=== PATIENT | male | born 1950 | race Caucasian/White ===

== ENCOUNTER 2020-10-26 18:04 | Inpatient (IN) | payer OTHER, MEDICARE, SELFPAY ==
--- NOTE | ~2020-10-26 | CT_ITS ---
EXAMINATION: CT biopsy lung w/imaging DATE: 10/30/2020 14:13 INDICATION: Left lung mass. TECHNIQUE: The procedure including the risks, benefits, and alternatives and possibility of chest tub e placement were discussed with the patient. Risks discussed included hemorrhage and pneumothorax. Th e patient understood the risks and agreed to proceed. The patient was placed supine. The skin overly ing the left chest was prepped and draped in sterile fashion. Anesthetic was administered with 1% li docaine subcutaneously. A 19 gauge outer needle was advanced under CT guidance to the lesion of inte rest. A 20 gauge core biopsy needle was then used to obtain 3 core biopsy specimens. The needle was r emoved and the entry site was cleaned and dressed. The mA was adjusted according to patient size. Ite rative reconstruction technique was employed. The dose-length product was 93.91 mGy-cm. There were n o immediate complications. FINDINGS: CT images demonstrate the outer needle tip in an 11 cm mass in left lung upper lobe. IMPRESSION: 1. CT-guided core needle biopsy of a left lung mass. Reviewed, dictated and finalized at location A.
--- NOTE | ~2020-10-26 | US_ITS ---
EXAMINATION: US thoracentesis DATE: 10/27/2020 13:52 INDICATION: pleural effusion TECHNIQUE: The procedure and its risks, benefits, and alternatives were discussed with the patient. P otential risks discussed included bleeding, infection, and pneumothorax. The patient understood the r isks and agreed to proceed. The skin was prepped and draped in sterile fashion. 1% lidocaine was used for local anesthesia. Under ultrasound guidance, a 5 Fr catheter with trochar was advanced into the left pleural effusion. Fluid was aspirated. The catheter was removed, and a dressing was applied. The re were no immediate complications. FINDINGS: Ultrasound images demonstrate a left pleural effusion and the catheter within the fluid. IMPRESSION: 1. Successful ultrasound-guided thoracentesis yielding 800 mL of clear, yellow fluid. Reviewed, dictated and finalized at location A.
--- NOTE | ~2020-10-26 | XR_ITS ---
EXAMINATION: [id number]_CR DATE: 10/27/2020 13:45 INDICATION: Left pleural effusion status post thoracentesis. TECHNIQUE: A single frontal view of the chest was obtained. COMPARISON: Chest CT 10/26/2020 FINDINGS: There is a mass involving left mid and lower lung zones. There is a small left pleural effu moses. No pneumothorax. The heart size is normal. IMPRESSION: 1. Mass involving left mid and lower lung zones, consistent with primary bronchogenic carcinoma. 2. Small left pleural effusion with improvement status post thoracentesis. Reviewed, dictated and finalized at location A. IMPRESSION: 1. Mass involving left mid and lower lung zones, consistent with primary bronch ogenic carcinoma. 2. Small left pleural effusion with improvement status post thoracentesis.
--- NOTE | ~2020-10-26 | XR_ITS ---
EXAMINATION: XR chest 1V portable DATE: 10/30/2020 17:25 INDICATION: Left lung mass status post percutaneous biopsy. TECHNIQUE: A single frontal view of the chest was obtained. COMPARISON: Chest single view at 3:23 PM FINDINGS: There is a mass in left lung upper lobe. There is a small left pleural effusion. No pneumot horax. The heart size is normal. IMPRESSION: 1. Mass in left lung upper lobe suspicious for primary bronchogenic carcinoma. 2. Stable small left pleural effusion. Reviewed, dictated and finalized at location A.
--- NOTE | ~2020-10-26 | CT_ITS ---
EXAMINATION: CTA chest PE protocol DATE: 10/26/2020 23:48 INDICATION: Shortness of breath TECHNIQUE: Computed tomography angiography (CTA) of the chest was performed with 100 mL Omnipaque-350 intravenous contrast timed to evaluate the pulmonary arteries. Coronal maximum intensity projection 3D-reconstructions were created by the technologist. Automated exposure control and iterative reconst ruction technique were employed. Exam dose: 426.17 mGy-cm total exam DLP. COMPARISON: 10/26/2020 AP and lateral chest FINDINGS: There is no CT evidence of pulmonary embolism. No thoracic aortic aneurysm or dissection. There is thoracic aortic as well as great vessel and coron michelle artery calcification. Normal heart size. Minimal pericardial effusion. There is an approximately 10.8 x 10.3 cm soft tissue mass of the lingula, extending into the left hil um and pericardium and myocardium with loss of intervening fat planes, likely a large lingular malign myriam. Moderate left pleural effusion. There is left lower lobe compressive atelectasis. There is mild prevascular and superior mediastinal lymph node prominence, likely metastatic. Heart size is normal. Right lung is clear. In addition to the compressive left lower lobe atelectasis there is mild left up per lobe infiltrate and/or atelectasis. Small sliding hiatal hernia. No suspicious osteolytic or osteoblastic lesions are noted. IMPRESSION: Lingular mass lesion most likely due to pulmonary malignancy, with evidence of pericardi al or myocardial probable invasion, left hilar and mediastinal lymphadenopathy, moderate left pleural effusion. Reviewed, dictated and finalized at Location A. Reviewed, dictated and finalized at location A. IMPRESSION: Lingular mass lesion most likely due to pulmonary malignancy, with evidence of pericardial or myocardial probable invasion, left hilar and medias tinal lymphadenopathy, moderate left pleural effusion.
--- NOTE | ~2020-10-26 | XR_ITS ---
EXAMINATION: XR chest 1V portable DATE: 10/30/2020 15:30 INDICATION: Left lung mass status post percutaneous biopsy. TECHNIQUE: A single frontal view of the chest was obtained. COMPARISON: Chest single view at 219 PM FINDINGS: There is a mass in left lung upper lobe. There is a small left pleural effusion. No pneumot horax. The heart size is normal. IMPRESSION: 1. Mass in left lung upper lobe suspicious for primary bronchogenic carcinoma. 2. Stable small left pleural effusion. Reviewed, dictated and finalized at location A.
--- NOTE | ~2020-10-26 | XR_ITS ---
EXAMINATION: XR chest 1V DATE: 10/30/2020 14:22 INDICATION: Left lung mass status post percutaneous biopsy. TECHNIQUE: A single frontal view of the chest was obtained. COMPARISON: Chest 2 views 10/26/2020 FINDINGS: There is a mass in left lung upper lobe. There is a small left pleural effusion. No pneumot horax. The heart size is normal. IMPRESSION: 1. Left lung mass suspicious for primary bronchogenic carcinoma. 2. Small left pleural effusion. Reviewed, dictated and finalized at location A.
--- NOTE | ~2020-10-26 | XR_ITS ---
EXAMINATION: XR chest 2V EXAM DATE: 10/26/2020 19:09 INDICATION: Shortness of breath for 2 months, worsening. Productive cough. TECHNIQUE: Frontal and lateral projections of the chest obtained and reviewed. There is no prior eliza dy for comparison. FINDINGS: There is dense lingular, left lower lobe consolidation. Could be pneumonia and atelectasis . Underlying cancer not excludable and follow-up chest x-ray recommended in 2 weeks, CT chest with co ntrast if this does not resolve. Probable left pleural effusion and elevated left hemidiaphragm. Righ t lung is clear. No pneumothorax. Cardiomediastinal silhouette is normal. There are no osseous abnorm alities identified. IMPRESSION: Dense lingular, left lower lobe consolidation. Pneumonia, atelectasis an/or cancer. Clin ical correlation, follow-up chest x-ray to resolution. Reviewed, dictated and finalized at location A. IMPRESSION: Dense lingular, left lower lobe consolidation. Pneumonia, atelecta sis an/or cancer. Clinical correlation, follow-up chest x-ray to resolution.
[2020-10-26 18:13] VITALS: BP 128/70; PULSE 104; RESP 20; TEMP 37.3; O2SAT 94
--- NOTE | 2020-10-26 18:17 | ECG_ITS ---
Measurements Intervals [place] Rate: 99 P: 54 AL: 164 QRS: 39 QRSD: 96 T: 120 QT: 318 QTc: 408 Interpretive Statements SINUS RHYTHM POSSIBLE LEFT ATRIAL ENLARGEMENT BORDERLINE T WAVE ABNORMALITY- DIFFUSE LEADS BASELINE WANDER- I, III, AVL, AVF, V2-V6 BORDERLINE ECG Electronically Signed On 10-27-2020 10:47:16 CDT by Kem Kiran D.O.
[2020-10-26 18:33] LABS: Basophils Percent Auto 0.2 % (0.2-1.2); Eosinophils Absolute Auto 0.2 K/mm3 (0-0.3); Eosinophils Percent Auto 1.2 % (0-4.4); Hematocrit 29.2 % (42.0-52.0); Hemoglobin 8.7 g/dL (14.0-18.0); Immature Granulocyte Absolute 0.07 K/mm3 (0.00-0.031); Immature Granulocyte Percent A 0.5 % (0-0.5); Lymphocytes Absolute Auto 1.83 K/mm3 (0.9-3.2); Lymphocytes Percent Auto 13.9 % (18.3-44.2); Mean Corpuscular HGB Conc 29.8 g/dl (32-36); Mean Corpuscular Hemoglobin 21.5 pg (26-34); Mean Corpuscular Volume 72.3 fl (80-100); Monocytes Percent Auto 7.9 % (2.6-8.5); Neutrophils Percent Auto 76.3 % (45.5-73.1); Platelet Count Result 452 k/mm3 (150-375); Red Blood Count 4.04 M/mm3 (4.6-6.20); Red Cell Distribution Width 16.9 % (11.5-14.5); White Blood Count 13.2 K/mm3 (4.5-10.0)
[2020-10-26 18:41] LABS: Anion Gap 7 mmol/L (8-16); Blood Urea Nitrogen 15 mg/dL (9-20); Calcium 10.6 mg/dL (8.4-10.2); Carbon Dioxide 29 mmol/L (22-30); Chloride 93 mmol/L (98-107); Estimated CRCL calculation 62 ml/min; Estimated Glomerular Filt Rate > 60; Glucose 110 mg/dL (75-110); Potassium 3.5 mmol/L (3.4-5.0); Sodium 129 mmol/L (137-145)
[2020-10-26 20:09] VITALS: BP 160/77; PULSE 100; RESP 24; TEMP 37.4; O2SAT 96; O2SAT 98
[2020-10-26 21:24] VITALS: PULSE 102; RESP 20
[2020-10-26] MEDS: IPRATROPIUM BR 0.02% INH SOLN 0.5 MG/2.5 ML VIAL INHALATION (21:24)
[2020-10-26] MEDS: ALBUTEROL SULFATE NEB 2.5 MG/0.5 ML INH 5 MG INHALATION (21:24)
[2020-10-26 21:31] VITALS: PULSE 102; RESP 20
[2020-10-26 21:44] VITALS: PULSE 100; RESP 20
[2020-10-26 22:02] VITALS: BP 131/56; PULSE 100; O2SAT 93
[2020-10-26 22:11] LABS: Lactic Acid Reflex 1.3 mmol/L (0.7-2.1)
[2020-10-26 22:12] LABS: Alanine Aminotransferase 11 U/L (4-50); Albumin Level 3.9 g/dL (3.5-5.1); Alkaline Phosphatase 130 U/L (38-126); Aspartate Amino Transferase 34 U/L (17-59); Bilirubin,Total 0.7 mg/dL (0.2-1.3)
[2020-10-26 22:24] LABS: NT Pro B Type Natriuretic Pept 1100 pg/mL (5-100)
[2020-10-26 22:26] LABS: Troponin I < 0.012 ng/mL (0.000-0.034)
--- NOTE | 2020-10-26 23:11 | ED.GENADULT ---
HPI - General Adult General Chief complaint: Shortness of Breath/Dyspnea Stated complaint: Difficulty breathing 2 months Time Seen by Provider: 10/26/20 21:10 History of Present Illness HPI narrative: Patient is a 70-year-old gentleman who presents the emergency department chief complaint of shortness of breath. Patient reports he has history of a lesion in his left lung and also has had pleural effusions drained out of his left side of his chest. Patient states has been having increasing shortness of breath over the last several months but states that today it is gotten significantly worse. The patient states that he feels as though he cannot get a good deep breath Related Data Home Medications Medication Instructions Recorded Confirmed amlodipine 5 mg tablet 5 mg PO DAILY 06/14/19 gemfibrozil 600 mg tablet 600 mg PO BID 06/14/19 ipratropium 20 mcg-albuterol 100 1 puff INHALATION QID 06/14/19 mcg/actuation mist for inhalation lisinopril 5 mg tablet 5 mg PO DAILY 06/14/19 polyethylene glycol 3350 17 17 gm PO DAILY 06/14/19 gram/dose oral powder Allergies Allergy/AdvReac Type Severity Reaction Status Date / Time No Known Allergies Allergy Mild Verified 10/26/20 20:13 [facility] Past Medical History Medical History (Updated 10/27/20 @ 01:32 by Dorian Diehl MD) Agent orange exposure Anemia, unspecified Body mass index (BMI) 35.0-35.9, adult (01/01/19) Changing skin lesion Chronic obstructive pulmonary disease, unspecified Dorsalgia, unspecified Essential (primary) hypertension Former smoker Hyperglycemia Hypersomnia Memory loss Other fatigue Parkinsons disease Pure hypercholesterolemia Tremor Urinary incontinence Family History Family History (Updated 01/01/19 @ 08:56 by DOCTOR UNKNOWN) Father Family history of malignant neoplasm Mother Patient's mother is in good health Patient's mother is , Onset Age: 69 Family history of malignant neoplasm of brain Family history of malignant neoplasm of bone Family history of malignant neoplasm of uterus Social History Social History (Updated 06/17/19 @ 08:28 by Harry Roque [facility]) Smoking packs per day: 3 Smoking cigarettes per day: 60.0 Years smoked: 20 Smoking pack-years: 60.00 Smoking status: Former smoker Smoking end date: 04/24/00 Alcohol intake: never Gender identity (if verbalized by the patient): Male Course Vital Signs Vital signs: Vital Signs Temperature 37.3 C 10/26/20 18:13 Pulse Rate 104 H 10/26/20 18:13 Respiratory Rate 20 10/26/20 18:13 Blood Pressure 128/70 10/26/20 18:13 Pulse Oximetry 94 10/26/20 18:13 Temperature 37.4 C 10/26/20 20:09 Pulse Rate 90 10/27/20 00:49 Respiratory Rate 20 10/27/20 00:49 Blood Pressure 147/71 H 10/27/20 00:49 Pulse Oximetry 96 10/27/20 00:49 Medical Decision Making Vital Signs Vital Signs: Vital Signs Temperature 37.3 C 10/26/20 18:13 Pulse Rate 104 H 10/26/20 18:13 Respiratory Rate 20 10/26/20 18:13 Blood Pressure 128/70 10/26/20 18:13 Pulse Oximetry 94 10/26/20 18:13 Temperature 37.4 C 10/26/20 20:09 Pulse Rate 90 10/27/20 00:49 Respiratory Rate 20 10/27/20 00:49 Blood Pressure 147/71 H 10/27/20 00:49 Pulse Oximetry 96 10/27/20 00:49 Lab Data Result diagrams: 10/26/20 18:25 10/26/20 18:25 Labs: Lab Results 10/26/20 10/26/20 10/26/20 Range/Units 18:25 18:25 21:45 WBC 13.2 H (4.5-10.0) K/mm3 RBC 4.04 L (4.6-6.20) M/mm3 Hgb 8.7 L (14.0-18.0) g/dL Hct 29.2 L (42.0-52.0) % MCV 72.3 L (80-100) fl MCH 21.5 L (26-34) pg MCHC 29.8 L (32-36) g/dl RDW 16.9 H (11.5-14.5) % Plt Count 452 H (150-375) k/mm3 MPV 9.0 (7.4-10.4) fl Immature Gran % (Auto) 0.5 (0-0.5) % Neut % (Auto) 76.3 H (45.5-73.1) % Lymph % (Auto) 13.9 L (18.3-44.2) % [place] % (Auto) 7.9 (2.6-8.5) % Eos % (Auto)
[2020-10-27] VITALS (20 sets, daily range): BP systolic 111–147; BP diastolic 48–75; PULSE 77–100; RESP 16–28; TEMP 36.2–36.9; O2SAT 93–99; BMI 25.8
[2020-10-27] MEDS: ALBUTEROL SULFATE NEB 2.5 MG/0.5 ML INH 5 MG INHALATION ×3 (02:49→14:15)
[2020-10-27] MEDS: IPRATROPIUM BR 0.02% INH SOLN 0.5 MG/2.5 ML VIAL INHALATION ×4 (02:50→20:04)
--- NOTE | 2020-10-27 02:50 | ADMGEN ---
This patient, Frederick Garduno, was admitted to Medical Room 345-01. Patient/family oriented to hospital policies and general routines including ID bracelet, bed and alarms, visiting hours, pain management, procedures, bathroom and other care routines, personal items, smoking policy, room service/diet, and visiting hours. Information on how to activate the Rapid Response Team has been discussed. Patient/Family are encouraged to report perceived risks to care and to ask questions if they do not understand what they are told or what they should do.
--- NOTE | 2020-10-27 03:31 | PM.IMHP ---
H&P: HPI History of Present Illness Date/Time: 10/27/20 03:31 Chief Complaint: shortness of breath Narrative: Patient is a 70-year-old gentleman who presents the emergency department with chief complaint of shortness of breath. Patient reports he has history of a lesion in his left lung and also has had pleural effusions drained out of his left side of his chest few weeks back. Patient states has been having increasing shortness of breath over the last several months but states that today it is gotten significantly worse. The patient states that he feels as though he cannot get a good deep breath. He also reports chronic cough. No fever or chills. He also reported he had some chest pain in his left side of the chest that radiated to his left shoulder. He states he is getting worked up for his left lung mass this Monday by a doctor in [place] that is he is going to follow-up with. He otherwise does not know the details of the test that he is going to get it done or the details of the tests that he had done in the past. He also reports significant weight loss of about 50 lb since past 6 months. His workup in the ER has revealed leukocytosis of 13,000 with anemia of 8.7 along with hyponatremia of 129 normal renal function elevated calcium at 10.6- troponins elevated BNP at 11:00 a.m. normal lactate. His chest x-ray revealed dense lingular left lower lobe consolidation. Pneumonia, atelectasis and/or or cancer follow-up chest x-ray recommended in [address] chest with contrast if that this does not resolve. This was followed up with a CTA chest which showed no pulmonary embolism, no thoracic aortic dissection or aneurysm. There is large soft tissue heterogeneous mass within the lingula measuring 10.8 in to 10.3 cm extending to and involving the pericardium and left hilum. Findings are concerning for neoplasm infection with abscess excluded there is also moderate to large left pleural effusion prominent mediastinal and hilar lymph nodes small a pericardial effusion. Review of Systems Review of Systems: Narrative: - CONSTITUTIONAL: Reports weight loss, denies fever and chills. - HEENT: Denies changes in vision and hearing - RESPIRATORY: reports SOB and cough. - CV: Denies palpitations and reports CP. - GI: Denies abdominal pain, nausea, vomiting and diarrhea. - : Denies dysuria and urinary frequency. - MSK: Denies myalgia and joint pain. - SKIN: Denies rash and pruritus. - NEUROLOGICAL: Denies headache and syncope. - PSYCHIATRIC: Denies recent changes in mood. Denies anxiety and depression. All systems reviewed & are unremarkable except as noted in HPI and below Constitutional: Constitutional: Reports fatigue and Reports weakness Neurologic: Reports weakness Endocrine: Endocrine: Reports fatigue [facility] Past Medical History Medical History (Updated 10/27/20 @ 03:46 by John Amador MD) Agent orange exposure Anemia, unspecified Body mass index (BMI) 35.0-35.9, adult (01/01/19) Changing skin lesion Chronic obstructive pulmonary disease, unspecified Dorsalgia, unspecified Essential (primary) hypertension Former smoker Hyperglycemia Hypersomnia Memory loss Other fatigue Parkinsons disease Pure hypercholesterolemia Tremor Urinary incontinence Family History Family History Father Family history of malignant neoplasm Mother Patient's mother is in good health Patient's mother is , Onset Age: 69 Family history of malignant neoplasm of brain Family history of malignant neoplasm of bone Family history of malignant neoplasm of uterus Social History Social History (Updated 06/17/19 @ 08:28 by Harry Roque CMA) Smoking packs per day: 3 Smoking cigarettes per day: 60.0 Years smoked: 28 Smoking pack-years: 84.00 Smoking status: Former smoker Tobacco type: cigarettes Second hand tobacco smoke exposure: Yes Smoking end date:
[2020-10-27 08:04] LABS: INR 1.2; Prothrombin Time 15.2 Seconds (11.1-14.7)
[2020-10-27 08:05] LABS: Partial Thromboplastin Time 36.7 SECONDS (22.3-36.8)
[2020-10-27 10:06] LABS: Basophils Percent Auto 0.3 % (0.2-1.2); Eosinophils Percent Auto 0.4 % (0-4.4); Hematocrit 25.7 % (42.0-52.0); Hemoglobin 7.7 g/dL (14.0-18.0); Immature Granulocyte Absolute 0.04 K/mm3 (0.00-0.031); Immature Granulocyte Percent A 0.4 % (0-0.5); Lymphocytes Absolute Auto 0.76 K/mm3 (0.9-3.2); Lymphocytes Percent Auto 7.8 % (18.3-44.2); Mean Corpuscular Hemoglobin 21.7 pg (26-34); Mean Corpuscular Volume 72.4 fl (80-100); Monocytes Absolute Auto 0.8 K/mm3 (0.1-0.6); Monocytes Percent Auto 8.3 % (2.6-8.5); Neutrophils Absolute Auto 8.1 K/mm3 (1.3-6.7); Neutrophils Percent Auto 82.8 % (45.5-73.1); Platelet Count Result 334 k/mm3 (150-375); Red Blood Count 3.55 M/mm3 (4.6-6.20); Red Cell Distribution Width 16.9 % (11.5-14.5); White Blood Count 9.8 K/mm3 (4.5-10.0)
[2020-10-27 10:21] LABS: Anion Gap 6 mmol/L (8-16); Blood Urea Nitrogen 9 mg/dL (9-20); Calcium 10.1 mg/dL (8.4-10.2); Carbon Dioxide 28 mmol/L (22-30); Chloride 98 mmol/L (98-107); Estimated CRCL calculation 80 ml/min; Estimated Glomerular Filt Rate > 60; Glucose 134 mg/dL (75-110); Potassium 3.1 mmol/L (3.4-5.0); Sodium 132 mmol/L (137-145)
--- NOTE | 2020-10-27 11:48 | PCNSR ---
On 10/27/20, the student,Radha Edwards, provided care and completed [facility] documentation on this patient. I have reviewed the student's documentation and agree with the findings.
--- NOTE | 2020-10-27 13:50 | PC.NURSE ---
Patient back to room from having a thorancentisis on the left side.
--- NOTE | 2020-10-27 13:55 | PM.IMPN ---
Progress Note: A&P Assessment and Plan (1) Pleural effusion: Code(s): J90 - Pleural effusion, not elsewhere classified Status: Acute Assessment and Plan: Moderate left pleural effusion evident on CTA. He is maintaining adequate oxygenation on room air. Thoracentesis this afternoon Cytology, lab studies, blood cultures, fungal cultures and AFB ordered and pending (2) Lung mass: Code(s): R91.8 - Other nonspecific abnormal finding of lung field Status: Acute Assessment and Plan: 10.8 x 10.3 cm soft tissue mass of lingula, likely malignancy. Patient notes weight loss and poor appetite. He had a referral to pulmonology scheduled for 10/30/20. Awaiting studies as above Consult to pulmonology; input is appreciated. (3) Parkinsons disease: Code(s): G20 - Parkinson's disease Status: Acute Assessment and Plan: Continue carbidopa-levodopa (4) Essential (primary) hypertension: Code(s): I10 - Essential (primary) hypertension Status: Acute Assessment and Plan: Blood pressure reviewed and has been generally well controlled. Last BP 127/49. Continue amlodipine Monitor BP trends (5) Chronic obstructive pulmonary disease, unspecified: Code(s): J44.9 - Chronic obstructive pulmonary disease, unspecified Status: Acute Assessment and Plan: Not in acute exacerbation. Stable on room air. Continue albuterol and ipratropium nebs (6) Microcytic anemia: Code(s): D50.9 - Iron deficiency anemia, unspecified Status: Acute Assessment and Plan: Hemoglobin is 7.7 today, a 1 point decline from yesterday. No prior labs available for review. No signs of blood loss. Repeat H&H this afternoon to ensure remaining stable. Check iron studies, B12, and folate (7) Electrolyte abnormality: Code(s): E87.8 - Other disorders of electrolyte and fluid balance, not elsewhere classified Status: Acute Assessment and Plan: Potassium low at 3.1 today. Sodium 129 at presentation with improvement to 132 today. 40 mEq IV KCl Monitor BMP closely Subjective Date/time seen: 10/27/20 13:55 Interval history: Date of service: 10/27/2020 Frederick Babb is a 70 year old male with a history of COPD, HTN, and Parkinson's disease who is seen in follow up for a left lingular mass. He is feeling better and is able to breathe a bit easier. He is still pretty short of breath with conversational dyspnea and dyspnea on exertion. He has been able to get up to ambulate to the restroom. He is coughing but has no sputum production. Denies chest pain. He is occasionally lightheaded with standing. Denies nausea, vomiting, fever, or chills. He has an overall poor appetite and estimates losing about 40 lbs in 3 months. He denies dysuria or hematuria but reports slow stream. No diarrhea, melena, or hematochezia. No abdominal pain. No body aches, sweats, chills. Review of Systems Review of Systems: All systems reviewed & are unremarkable except as noted in HPI and below Exam Narrative: Exam Narrative: Mr. Babb is a well-nourished, well-appearing 70-year-old male who is lying supine in bed. He appears comfortable and is in NARD. Neuro: awake, alert and oriented x4, speech clear, no focal neuro deficits noted, slight tremor of right arm HEENMT: normocephalic, atraumatic, EOMI, sclerae anicteric, moist oral mucosa, wearing eyeglasses Neck: supple, no lymphadenopathy Respiratory: diminished breath sounds (L>>R), somewhat shallow breaths. Cardio: regular rate, regular rhythm with S1-S2 Abdomen: nondistended, normoactive bowel sounds, soft, nontender to palpation Extremities: no edema, erythema, or tenderness to palpation, DP pulses 2+ bilaterally Skin: no rashes or lesions, warm and dry Psych: appropriate mood and affect, judgment and insight intact Objective Data Vital Signs Vital Signs: Vital Si
[2020-10-27] MEDS: FERROUS SULFATE 324 MG TABLET PO (15:59)
[2020-10-27] MEDS: CARBIDOPA/LEVODOPA 25/100 MG TABLET 2 TABLET PO (15:59)
[2020-10-27] MEDS: gemfibroziL 600 MG TABLET PO (15:59)
[2020-10-27 16:18] LABS: Appearance Pleural Fluid Hazy (Clear); Color Pleural Fluid Yellow (Colorless); Nucleated Cell Pleural Fluid 1173 /uL (0-1000); Pleural fluid source Pleural fluid
[2020-10-27 16:19] LABS: Lymphocytes Pleural Fluid 64 %; Monocytes Pleural Fluid 23 %; Neutrophils Pleural Fluid 13 % (0-25); RBC Pleural Fluid 573 /uL (0-0)
--- NOTE | 2020-10-27 16:20 | PM.CNPUL ---
Assessment and Plan Assessment and plan (1) Lung mass: Code(s): R91.8 - Other nonspecific abnormal finding of lung field Status: Acute Assessment and Plan: Patient is a former smoker with a large left mass and unintentional weight loss. Patient has no evidence of infection at this time. I am concerned about lung cancer. At this time will await the results of the cytology from the left thoracentesis. If this is positive he will need referral to an oncologist. If this is negative I would favor CT-guided biopsy of the left lung mass either at [facility] or the [facility] whichever is prefered by case management at both hospitals. at this time I will continue albuterol and ipratropium nebulizers. I feel no need to add systemic steroids or antibiotics at this point. Will follow with you History of Present Illness History of Present Illness Consult date: 10/27/20 Requesting physician: Hanna Palafox PA-C Reason for consult: lung mass Chief complaint: Dyspnea,Lung Mass,Left-sided Pleural Effusion Narrative: this is a new pulmonary consult for left pleural effusion and left lung mass. 70-year-old with a history of hypertension, Parkinson's who presented on 10/26 with shortness of breath and weakness. Patient is followed at [facility] and approximately 1 month ago he was seen at their clinic with shortness of breath and had a chest x-ray that showed an abnormality. Patient was treated for this shortness of breath improved and was discharged with Pulmonary follow-up. Patient has a Pulmonary Clinic follow-up on 10/30/2020. Patient's shortness of breath got worse and on 10/26 he presented to the emergency department with shortness of breath and weakness. A chest x-ray followed by a CT scan showed a large left lung mass with a left pleural effusion. On 10/27/2020 patient underwent a left thoracentesis with 800 mL of clear yellow fluid removed. Prior to the thoracentesis patient said he was feeling better with albuterol and ipratropium nebulizers and after the thoracentesis he said he again felt better and could breathe more freely. Patient currently denies shortness of breath while sitting. He denies fever, chills, rigors, sputum production, hemoptysis or chest pain. Patient does have a 40 lb weight loss in the last 3 months. Patient smoked tobacco from [id number] at 3 packs per day for a total of 87 pack years. 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 Review of Systems Review of Systems: All systems reviewed & are unremarkable except as noted in HPI and below Eyes: Eyes: Reports no additional eye complaints ENT: Reports system reviewed and no additional complaints, except as documented Cardiovascular: Cardiovascular: Reports no additional cardiovascular complaints Respiratory: Respiratory: Reports no additional respiratory complaints Gastrointestinal: Gastrointestinal: Reports no additional gastrointestinal complaints Musculoskeletal: Musculoskeletal: Reports no additional musculoskeletal complaints Integumentary/Breasts: Skin/Breast: Reports system reviewed and no additional complaints, except as docu Neurologic: Reports system reviewed and no additional complaints, except as documented Psychiatric: Psychiatric: Reports no additional psychiatric complaints Endocrine: Endocrine: Reports no additional endocrine complaints [facility] Past Medical History Medical History (Updated 10/27/20 @ 14:39 by Hanna Palafox PA-C) Agent orange exposure Anemia, unspecified Body mass index (BMI) 35.0-35.9, adult (01/01/19) Changing skin lesion Chronic obstructive pulmonary disease, unspecified Dorsalgia, unspecified Essential (primary) hypertension Former smoker Hyperglycemia Hypersomnia Memory loss Other fatigue Parkinsons disease Pure hypercholesterolemia Tremor Urinary incontinence Family Hist
[2020-10-27 16:28] LABS: Hematocrit 29.3 % (42.0-52.0); Hemoglobin 8.8 g/dL (14.0-18.0)
[2020-10-27 17:17] LABS: Iron 18 ug/dL (49-181)
[2020-10-27 17:26] LABS: Percent Iron Saturation 10 % (20-50)
[2020-10-27 17:46] LABS: Folic Acid 5.7 ng/mL (2.76->20)
[2020-10-27] MEDS: ALBUTEROL SULFATE NEB 2.5 MG/0.5 ML INH INHALATION (20:04)
[2020-10-28] VITALS (18 sets, daily range): BP systolic 99–123; BP diastolic 39–96; PULSE 80–96; RESP 16–22; TEMP 36.3–36.6; O2SAT 93–96
[2020-10-28] MEDS: ALBUTEROL SULFATE NEB 2.5 MG/0.5 ML INH INHALATION ×4 (01:39→20:24)
[2020-10-28] MEDS: IPRATROPIUM BR 0.02% INH SOLN 0.5 MG/2.5 ML VIAL INHALATION ×4 (01:39→20:24)
[2020-10-28 06:20] LABS: Basophils Percent Auto 0.4 % (0.2-1.2); Eosinophils Absolute Auto 0.2 K/mm3 (0-0.3); Eosinophils Percent Auto 1.6 % (0-4.4); Hematocrit 27.4 % (42.0-52.0); Immature Granulocyte Absolute 0.05 K/mm3 (0.00-0.031); Immature Granulocyte Percent A 0.5 % (0-0.5); Lymphocytes Absolute Auto 1.07 K/mm3 (0.9-3.2); Lymphocytes Percent Auto 10.6 % (18.3-44.2); Mean Corpuscular HGB Conc 29.2 g/dl (32-36); Mean Corpuscular Hemoglobin 21.3 pg (26-34); Mean Corpuscular Volume 72.9 fl (80-100); Mean Platelet Volume 9.1 fl (7.4-10.4); Monocytes Absolute Auto 0.7 K/mm3 (0.1-0.6); Neutrophils Percent Auto 79.9 % (45.5-73.1); Platelet Count Result 385 k/mm3 (150-375); Red Blood Count 3.76 M/mm3 (4.6-6.20); Red Cell Distribution Width 17.2 % (11.5-14.5); White Blood Count 10.1 K/mm3 (4.5-10.0)
[2020-10-28 06:43] LABS: Alanine Aminotransferase 13 U/L (4-50); Albumin Level 3.1 g/dL (3.5-5.1); Alkaline Phosphatase 98 U/L (38-126); Anion Gap 8 mmol/L (8-16); Aspartate Amino Transferase 31 U/L (17-59); Bilirubin,Total 0.6 mg/dL (0.2-1.3); Blood Urea Nitrogen 10 mg/dL (9-20); Calcium 10.7 mg/dL (8.4-10.2); Carbon Dioxide 26 mmol/L (22-30); Chloride 97 mmol/L (98-107); Estimated CRCL calculation 70 ml/min; Estimated Glomerular Filt Rate > 60; Glucose 118 mg/dL (75-110); Potassium 3.9 mmol/L (3.4-5.0); Sodium 131 mmol/L (137-145)
[2020-10-28 08:01] LABS: Lactate Dehydrogenase 291 U/L (313-618)
[2020-10-28] MEDS: CARBIDOPA/LEVODOPA 25/100 MG TABLET 2 TABLET PO ×3 (08:14→17:47)
[2020-10-28] MEDS: FERROUS SULFATE 324 MG TABLET PO ×2 (08:14→17:47)
[2020-10-28] MEDS: amLODIPine BESYLATE 5 MG TABLET PO (08:14)
[2020-10-28] MEDS: polyethylene glycoL 3350 17 GM POWD.PACK PO (08:14)
[2020-10-28] MEDS: lisinopriL 5 MG TABLET PO (08:14)
[2020-10-28] MEDS: gemfibroziL 600 MG TABLET PO ×2 (08:14→17:47)
[2020-10-28] MEDS: PANTOPRAZOLE 40 MG TABLET PO (09:00)
--- NOTE | 2020-10-28 09:02 | PM.PNPUL ---
Progress Note: A&P Assessment and Plan (1) Lung mass: Code(s): R91.8 - Other nonspecific abnormal finding of lung field Status: Acute Assessment and Plan: 10/27 Patient is a former smoker with a large left mass and unintentional weight loss. Patient has no evidence of infection at this time. I am concerned about lung cancer. At this time will await the results of the cytology from the left thoracentesis. If this is positive he will need referral to an oncologist. If this is negative I would favor CT-guided biopsy of the left lung mass either at [facility] or the [facility] whichever is prefered by case management at both hospitals. At this time I will continue albuterol and ipratropium nebulizers. I feel no need to add systemic steroids or antibiotics at this point. 10/28 Patient states that he is 80% back to normal. He has no rest shortness of breath. He does have some dyspnea on exertion. Room air saturations are 98%. Left pleural effusion pH is greater than 7.50. Nucleated cells 1173 with a differential of neutrophils 13%, lymphocytes 64%, monocytes 23%. Other pleural effusion tests are pending. Await cytology. If this is positive he will need referral to an oncologist. If this is negative I would favor CT-guided biopsy of the left lung mass either at [facility] or the [facility] whichever is preferred by case management at both hospitals Will follow with you Subjective Date/time seen: 10/28/20 09:02 Interval history: 10/27 New patient counter for lung mass 70-year-old with a history of hypertension, Parkinson's who presented on 10/26 with shortness of breath and weakness. Patient is followed at [facility] and approximately 1 month ago he was seen at their clinic with shortness of breath and had a chest x-ray that showed an abnormality. Patient was treated for this shortness of breath improved and was discharged with Pulmonary follow-up. Patient has a Pulmonary Clinic follow-up on 10/30/2020. Patient's shortness of breath got worse and on 10/26 he presented to the emergency department with shortness of breath and weakness. A chest x-ray followed by a CT scan showed a large left lung mass with a left pleural effusion. On 10/27/2020 patient underwent a left thoracentesis with 800 mL of clear yellow fluid removed. Prior to the thoracentesis patient said he was feeling better with albuterol and ipratropium nebulizers and after the thoracentesis he said he again felt better and could breathe more freely. Patient currently denies shortness of breath while sitting. He denies fever, chills, rigors, sputum production, hemoptysis or chest pain. Patient does have a 40 lb weight loss in the last 3 months. Patient smoked tobacco from [id number] at 3 packs per day for a total of 87 pack years. 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 10/28 Patient states that he is 80% back to normal. He has no rest shortness of breath. He does have some dyspnea on exertion. Room air saturations are 98%. Left pleural effusion pH is greater than 7.50. Nucleated cells 1173 with a differential of neutrophils 13%, lymphocytes 64%, monocytes 23%. Other pleural effusion tests are pending. Review of Systems Review of Systems: All systems reviewed & are unremarkable except as noted in HPI and below Eyes: Eyes: Reports no additional eye complaints ENT: Reports system reviewed and no additional complaints, except as documented Cardiovascular: Cardiovascular: Reports no additional cardiovascular complaints Respiratory: Respiratory: Reports no additional respiratory complaints Gastrointestinal: Gastrointestinal: Reports no additional gastrointestinal complaints Musculoskeletal: Musculoskeletal: Reports no additional musculoskeletal complaints Integumentary/Breasts: Skin/Breast: Reports system reviewed and no additional complaints, exc
--- NOTE | 2020-10-28 14:47 | PM.IMPN ---
Progress Note: A&P Assessment and Plan (1) Pleural effusion: Code(s): J90 - Pleural effusion, not elsewhere classified Status: Acute Assessment and Plan: Moderate left pleural effusion evident on CTA. He is maintaining adequate oxygenation on room air. S/p US guided thoracentesis on 10/27/20 with 800 ml clear yellow fluid Initial results with elevated pleural RBCs and nucleated cells, additional tests pending including pleural LDH, albumin, glucose, AFB, fungal, and bacterial cultures. Will await results Cytology pending Appreciate pulmonology recommendations (2) Lung mass: Code(s): R91.8 - Other nonspecific abnormal finding of lung field Status: Acute Assessment and Plan: 10.8 x 10.3 cm soft tissue mass of lingula, likely malignancy. Patient notes weight loss and poor appetite. He had a referral to pulmonology scheduled for 10/30/20. Awaiting studies as above Consult to pulmonology; input is appreciated. Per pulm recommendations, will refer to oncology if positive cytology and will consider CT guided biopsy if negative (3) Parkinsons disease: Code(s): G20 - Parkinson's disease Status: Acute Assessment and Plan: No acute issues. Continue carbidopa-levodopa (4) Essential (primary) hypertension: Code(s): I10 - Essential (primary) hypertension Status: Acute Assessment and Plan: Blood pressure reviewed and has been generally well controlled. Last BP 114/96. Continue amlodipine Monitor BP trends (5) Chronic obstructive pulmonary disease, unspecified: Code(s): J44.9 - Chronic obstructive pulmonary disease, unspecified Status: Acute Assessment and Plan: Not in acute exacerbation. Stable on room air. Continue albuterol and ipratropium nebs (6) Microcytic anemia: Code(s): D50.9 - Iron deficiency anemia, unspecified Status: Acute Assessment and Plan: Hemoglobin and hematocrit remaining stable. No prior labs available for review. No signs of blood loss and vitals are stable. Iron studies with low iron saturation. B12 and folate wnl. Monitor H&H closely Continue PO ferrous sulfate BID (7) Electrolyte abnormality: Code(s): E87.8 - Other disorders of electrolyte and fluid balance, not elsewhere classified Status: Acute Assessment and Plan: Potassium levels improved today at 3.9 Sodium slightly decreased at 131, remaining stable. Could be due to SIADH from possible lung cancer vs sertraline use. Monitor BMP closely Sertraline on hold Subjective Date/time seen: 10/28/20 14:47 Interval history: Date of service: 10/28/2020 Frederick Babb is a 70 year old male with a history of COPD, HTN, and Parkinson's disease who is seen in follow up for a left lingular mass. He is better thoracentesis reports he is about 80% back to normal in terms of breathing. He still has some dyspnea with exertion. complains irritating dry chronic cough. Denies sinus drainage or congestion. No mucus production. No chest pain or palpitations. He still has a poor appetite but reports eating very well yesterday and eating pretty well this morning. He denies nausea or vomiting. No fevers or chills. Still with occasional lightheadedness only was standing. No fevers, sweats, or chills. No other complaints at this time. Review of Systems Review of Systems: All systems reviewed & are unremarkable except as noted in HPI and below Exam Narrative: Exam Narrative: Mr. Babb is a well-nourished, well-appearing 70-year-old male who is lying supine in bed. He appears comfortable and is in NARD. Neuro: awake, alert and oriented x4, speech clear, no focal neuro deficits noted HEENMT: normocephalic, atraumatic, EOMI, sclerae anicteric, moist oral mucosa, wearing eyeglasses Neck: supple, no lymphadenopathy Respiratory: diminished breath sounds (L>>R), no conversation
[2020-10-28] MEDS: ACETAMINOPHEN 325 MG TABLET 650 MG PO (18:16)
[2020-10-29] VITALS (18 sets, daily range): BP systolic 122–125; BP diastolic 40–61; PULSE 77–99; RESP 16–22; TEMP 36.3–36.5; O2SAT 87–99
[2020-10-29] MEDS: IPRATROPIUM BR 0.02% INH SOLN 0.5 MG/2.5 ML VIAL INHALATION ×4 (02:06→20:11)
[2020-10-29] MEDS: ALBUTEROL SULFATE NEB 2.5 MG/0.5 ML INH INHALATION ×4 (02:06→20:11)
[2020-10-29 06:06] LABS: Hematocrit 27.8 % (42.0-52.0); Hemoglobin 8.3 g/dL (14.0-18.0); Mean Corpuscular HGB Conc 29.9 g/dl (32-36); Mean Corpuscular Volume 73.5 fl (80-100); Mean Platelet Volume 8.9 fl (7.4-10.4); Platelet Count Result 378 k/mm3 (150-375); Red Blood Count 3.78 M/mm3 (4.6-6.20); White Blood Count 8.8 K/mm3 (4.5-10.0)
[2020-10-29 06:25] LABS: Alanine Aminotransferase 11 U/L (4-50); Alkaline Phosphatase 99 U/L (38-126); Anion Gap 7 mmol/L (8-16); Aspartate Amino Transferase 26 U/L (17-59); Bilirubin,Total 0.6 mg/dL (0.2-1.3); Blood Urea Nitrogen 9 mg/dL (9-20); Calcium 10.7 mg/dL (8.4-10.2); Carbon Dioxide 27 mmol/L (22-30); Chloride 98 mmol/L (98-107); Estimated CRCL calculation 70 ml/min; Estimated Glomerular Filt Rate > 60; Glucose 118 mg/dL (75-110); Magnesium 1.9 mg/dL (1.6-2.3); Potassium 4.2 mmol/L (3.4-5.0); Sodium 132 mmol/L (137-145)
[2020-10-29] MEDS: CARBIDOPA/LEVODOPA 25/100 MG TABLET 2 TABLET PO ×3 (09:11→17:11)
[2020-10-29] MEDS: polyethylene glycoL 3350 17 GM POWD.PACK PO (09:12)
[2020-10-29] MEDS: FERROUS SULFATE 324 MG TABLET PO ×2 (09:12→17:10)
[2020-10-29] MEDS: lisinopriL 5 MG TABLET PO (09:12)
[2020-10-29] MEDS: PANTOPRAZOLE 40 MG TABLET PO (09:12)
[2020-10-29] MEDS: amLODIPine BESYLATE 5 MG TABLET PO (09:12)
[2020-10-29] MEDS: gemfibroziL 600 MG TABLET PO ×2 (09:12→17:11)
--- NOTE | 2020-10-29 09:36 | PM.PNPUL ---
Progress Note: A&P Assessment and Plan (1) Lung mass: Code(s): R91.8 - Other nonspecific abnormal finding of lung field Status: Acute Assessment and Plan: 10/27 Patient is a former smoker with a large left mass and unintentional weight loss. Patient has no evidence of infection at this time. I am concerned about lung cancer. At this time will await the results of the cytology from the left thoracentesis. If this is positive he will need referral to an oncologist. If this is negative I would favor CT-guided biopsy of the left lung mass either at [facility] or the [facility] whichever is prefered by case management at both hospitals. At this time I will continue albuterol and ipratropium nebulizers. I feel no need to add systemic steroids or antibiotics at this point. 10/28 Patient states that he is 80% back to normal. He has no rest shortness of breath. He does have some dyspnea on exertion. Room air saturations are 98%. Left pleural effusion pH is greater than 7.50. Nucleated cells 1173 with a differential of neutrophils 13%, lymphocytes 64%, monocytes 23%. Other pleural effusion tests are pending. Await cytology. If this is positive he will need referral to an oncologist. If this is negative I would favor CT-guided biopsy of the left lung mass either at [facility] or the [facility] whichever is preferred by case management at both hospitals. 10/29 Patient states he is back to baseline at this time. Spoke with pathologist on 10/28 and he indicated that the pleural fluid cytology should be back today. If the pleural fluid cytology is positive will need oncology follow-up. If the pleural fluid cytology is negative I have spoken with Dr. Chambers and best approach would then be CT guided biopsy of left lung mass. I have made NPO for possible biopsy later today. Will follow with you. Subjective Date/time seen: 10/29/20 09:36 Interval history: 10/27 New patient counter for lung mass 70-year-old with a history of hypertension, Parkinson's who presented on 10/26 with shortness of breath and weakness. Patient is followed at [facility] and approximately 1 month ago he was seen at their clinic with shortness of breath and had a chest x-ray that showed an abnormality. Patient was treated for this shortness of breath improved and was discharged with Pulmonary follow-up. Patient has a Pulmonary Clinic follow-up on 10/30/2020. Patient's shortness of breath got worse and on 10/26 he presented to the emergency department with shortness of breath and weakness. A chest x-ray followed by a CT scan showed a large left lung mass with a left pleural effusion. On 10/27/2020 patient underwent a left thoracentesis with 800 mL of clear yellow fluid removed. Prior to the thoracentesis patient said he was feeling better with albuterol and ipratropium nebulizers and after the thoracentesis he said he again felt better and could breathe more freely. Patient currently denies shortness of breath while sitting. He denies fever, chills, rigors, sputum production, hemoptysis or chest pain. Patient does have a 40 lb weight loss in the last 3 months. Patient smoked tobacco from 4688-3667 at 3 packs per day for a total of 87 pack years. 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 10/28 Patient states that he is 80% back to normal. He has no rest shortness of breath. He does have some dyspnea on exertion. Room air saturations are 98%. Left pleural effusion pH is greater than 7.50. Nucleated cells 1173 with a differential of neutrophils 13%, lymphocytes 64%, monocytes 23%. Other pleural effusion tests are pending. 10/29 Patient states he continues to improve and is now walking around the room. He required 2 L overnight for low saturations but is now 98% on room air. Review of Systems Review of Systems: All systems reviewed & are unremarkable except as
--- NOTE | 2020-10-29 13:56 | PCDIET ---
On 10/29/20, the student, [Jessica Louis], provided care and completed [employer] documentation on this patient. I have reviewed the student's documentation and agree with the findings.
--- NOTE | 2020-10-29 13:56 | PM.IMPN ---
Progress Note: A&P Assessment and Plan (1) Pleural effusion: Code(s): J90 - Pleural effusion, not elsewhere classified Status: Acute Assessment and Plan: Moderate left pleural effusion evident on CTA. He is maintaining adequate oxygenation on room air. S/p US guided thoracentesis on 10/27/20 with 800 ml clear yellow fluid Initial results with elevated pleural RBCs and nucleated cells, additional tests pending including pleural LDH, albumin, glucose, AFB Preliminary fungal, and bacterial cultures negative, monitor cultures pleural fluid cytology without malignant cells. plan for lung biopsy. See plan below. (2) Lung mass: Code(s): R91.8 - Other nonspecific abnormal finding of lung field Status: Acute Assessment and Plan: 10.8 x 10.3 cm soft tissue mass of lingula, likely malignancy. Patient notes weight loss and poor appetite. CT-guided left lung biopsy ordered. Will be performed tomorrow. Consult to pulmonology; input is appreciated. He had a pulmonology appointment scheduled for tomorrow (10/30) which he will need to cancel as he will remain hospitalized for biopsy Plan for likely discharge tomorrow following biopsy if no issues. (3) Parkinsons disease: Code(s): G20 - Parkinson's disease Status: Acute Assessment and Plan: No acute issues. Continue carbidopa-levodopa (4) Essential (primary) hypertension: Code(s): I10 - Essential (primary) hypertension Status: Acute Assessment and Plan: Blood pressure reviewed and has been generally well controlled. Last BP 124/40 Continue amlodipine Monitor BP trends (5) Chronic obstructive pulmonary disease, unspecified: Code(s): J44.9 - Chronic obstructive pulmonary disease, unspecified Status: Acute Assessment and Plan: Not in acute exacerbation. Stable on room air. Continue albuterol and ipratropium nebs (6) Microcytic anemia: Code(s): D50.9 - Iron deficiency anemia, unspecified Status: Acute Assessment and Plan: Hemoglobin and hematocrit remaining stable. No prior labs available for review. No signs of blood loss and vitals are stable. Iron studies with low iron saturation. B12 and folate wnl. Monitor H&H closely Continue PO ferrous sulfate BID (7) Electrolyte abnormality: Code(s): E87.8 - Other disorders of electrolyte and fluid balance, not elsewhere classified Status: Acute Assessment and Plan: Sodium slightly decreased at 132, remaining stable. Could be due to SIADH from possible lung cancer vs sertraline use. potassium was initially low but is remaining stable. 4.2 today. Monitor BMP closely Sertraline on hold Subjective Date/time seen: 10/29/20 13:56 Interval history: Date of service: 10/29/2020 Frederick Babb is a 70 year old male with a history of COPD, HTN, and Parkinson's disease who is seen in follow up for a left lingular mass. He underwent thoracentesis on 10/28/20 and had clinical improvement. he is feeling well today. shortness of breath continues to improve. He is able to get up and walk around without significant dyspnea and denies conversational dyspnea. Cough has diminished. Appetite is still poor. He reports he is feeling a little bit low on energy today. Denies nausea, vomiting, fever, chills, dizziness, lightheadedness, weakness, chest pain, palpitations. He is feeling constipated. No urinary symptoms. He is overall in good spirits. no additional concerns at this time. Review of Systems Review of Systems: All systems reviewed & are unremarkable except as noted in HPI and below Exam Narrative: Exam Narrative: Mr. Babb is a well-nourished, well-appearing 70-year-old male who is lying supine in bed. He appears comfortable and is in NARD. Neuro: awake, alert and oriented x4, speech clear, no focal neuro deficits noted HEENMT: normocephalic, atrau
--- NOTE | 2020-10-29 14:50 | PC.NURSE ---
On 10/29/20, the student, [ Jessica Louis], provided care and completed [facility] documentation on this patient. I have reviewed the student's documentation and agree with the findings.
[2020-10-29] MEDS: BISACODYL 10 MG SUPPOSITORY RECTAL (17:12)
[2020-10-29 19:54] LABS: Glucose Pleural Fluid 127 mg/dL; LDH Pleural Fluid 290 U/L; Total Protein Pleural Fluid 4.2 g/dL
[2020-10-29] MEDS: DOCUSATE SODIUM 100 MG CAPSULE PO (20:11)
[2020-10-29] MEDS: ACETAMINOPHEN 325 MG TABLET 650 MG PO (21:18)
[2020-10-30] VITALS (15 sets, daily range): BP systolic 116–136; BP diastolic 54–66; PULSE 79–97; RESP 18–24; TEMP 36–36.2; O2SAT 93–97
--- NOTE | 2020-10-30 | ECHO_ITS ---
Patient Info Name: Frederick Garduno Age: 70 years : 1950 Gender: Male Ht: 64 in Wt: 150 lbs BSA: 1.77 m2 HR: 92 bpm BP: 136 / 56 mmHg Technical Quality: Fair Exam Date: 10/30/2020 2:46 PM Exam Location: [facility] Room: 348 Patient Status: Inpatient Admit Date: 10/29/2020 Staff Ordering Physician: Hanna Palafox PA-C Lamp Stack Developer: Audelia oNrwood RDCS Attending Provider: Hanna Palafox PA-C Referring Physician: Javy GAFFNEY; Exam Type: CA echo doppler color flow Study Info Indications - pericardial effusion Complete two-dimensional, color flow and Doppler transthoracic echocardiogram is performed. Summary 1. Complete two-dimensional, color flow and Doppler transthoracic echocardiogram is performed. 2. Left ventricular chamber dimension is normal. 3. Left ventricular systolic function is normal, estimated at 65-70%. 4. The left ventricular diastolic function is grade I diastolic dysfunction. 5. E/e' 7 is not elevated. 6. There is mild aortic valve sclerosis. 7. There is trace tricuspid valve regurgitation. 8. No pulmonary hypertension, estimated pulmonary arterial systolic pressure is 33 mmHg. Left Ventricle E/e' 7 is not elevated. Left ventricular chamber dimension is normal. Left ventricular systolic function is normal, estimated at 65-70%. The left ventricular diastolic function is grade I diastolic dysfunction. Right Ventricle Right ventricular chamber dimension is normal. Right ventricular systolic function is normal. Left Atria Left atrial chamber dimension is normal. Right Atria Right atrial chamber dimension is normal. Aortic Valve The aortic valve is trileaflet. There is mild aortic valve sclerosis. There is no aortic valve stenosis. There is no aortic valve regurgitation. Pulmonic Valve There is no pulmonic regurgitation. Mitral Valve There is no mitral valve stenosis. There is no mitral valve regurgitation. Tricuspid Valve There is trace tricuspid valve regurgitation. No pulmonary hypertension, estimated pulmonary arterial systolic pressure is 33 mmHg. Pericardium/Pleural There is no pericardial effusion. Inferior Vena Cava Normal inferior vena cava with >50% collapse upon inspiration consistent with normal right atrial pressure, 5 mmHg. Aorta The aortic root size at the sinus of Valsalva is normal. Left Ventricular Outflow Tract Name Value Normal LVOT 2D LVOT Diameter 2.0 cm LVOT Doppler LVOT Peak Gradient 7 mmHg LVOT Mean Gradient 5 mmHg LVOT VTI 22 cm LVOT VTI/AV VTI Ratio 1.0 LVOT Stroke Volume 68 ml LVOT CO 19.4 l/min LVOT CI 11.0 l/min/m2 Pulmonic Valve Name Value Normal PV Doppler
[2020-10-30 02:47] LABS: Albumin Pleural Fluid 1.7 g/dL
[2020-10-30] MEDS: ALBUTEROL SULFATE NEB 2.5 MG/0.5 ML INH INHALATION ×3 (03:22→14:31)
[2020-10-30] MEDS: IPRATROPIUM BR 0.02% INH SOLN 0.5 MG/2.5 ML VIAL INHALATION ×3 (03:22→14:32)
[2020-10-30 05:44] LABS: Hematocrit 30.5 % (42.0-52.0); Mean Corpuscular HGB Conc 29.5 g/dl (32-36); Mean Corpuscular Hemoglobin 21.4 pg (26-34); Mean Corpuscular Volume 72.4 fl (80-100); Mean Platelet Volume 9.1 fl (7.4-10.4); Platelet Count Result 498 k/mm3 (150-375); Red Blood Count 4.21 M/mm3 (4.6-6.20); Red Cell Distribution Width 16.9 % (11.5-14.5); White Blood Count 10.9 K/mm3 (4.5-10.0)
[2020-10-30 06:06] LABS: Anion Gap 8 mmol/L (8-16); Blood Urea Nitrogen 10 mg/dL (9-20); Calcium 11.1 mg/dL (8.4-10.2); Carbon Dioxide 27 mmol/L (22-30); Chloride 98 mmol/L (98-107); Estimated CRCL calculation 62 ml/min; Estimated Glomerular Filt Rate > 60; Glucose 119 mg/dL (75-110); Potassium 4.3 mmol/L (3.4-5.0); Sodium 133 mmol/L (137-145)
[2020-10-30] MEDS: PANTOPRAZOLE 40 MG TABLET PO (08:15)
[2020-10-30] MEDS: amLODIPine BESYLATE 5 MG TABLET PO (08:15)
[2020-10-30] MEDS: DOCUSATE SODIUM 100 MG CAPSULE PO (08:15)
[2020-10-30] MEDS: CARBIDOPA/LEVODOPA 25/100 MG TABLET 2 TABLET PO ×3 (08:15→17:21)
[2020-10-30] MEDS: lisinopriL 5 MG TABLET PO (08:15)
[2020-10-30] MEDS: gemfibroziL 600 MG TABLET PO ×2 (08:15→17:21)
--- NOTE | 2020-10-30 10:39 | PM.PNPUL ---
Progress Note: A&P Assessment and Plan (1) Lung mass: Code(s): R91.8 - Other nonspecific abnormal finding of lung field Status: Acute Assessment and Plan: 10/27 Patient is a former smoker with a large left mass and unintentional weight loss. Patient has no evidence of infection at this time. I am concerned about lung cancer. At this time will await the results of the cytology from the left thoracentesis. If this is positive he will need referral to an oncologist. If this is negative I would favor CT-guided biopsy of the left lung mass either at [facility] or the [facility] whichever is prefered by case management at both hospitals. At this time I will continue albuterol and ipratropium nebulizers. I feel no need to add systemic steroids or antibiotics at this point. 10/28 Patient states that he is 80% back to normal. He has no rest shortness of breath. He does have some dyspnea on exertion. Room air saturations are 98%. Left pleural effusion pH is greater than 7.50. Nucleated cells 1173 with a differential of neutrophils 13%, lymphocytes 64%, monocytes 23%. Other pleural effusion tests are pending. Await cytology. If this is positive he will need referral to an oncologist. If this is negative I would favor CT-guided biopsy of the left lung mass either at [facility] or the [facility] whichever is preferred by case management at both hospitals. 10/29 Patient states he is back to baseline at this time. Spoke with pathologist on 10/28 and he indicated that the pleural fluid cytology should be back today. If the pleural fluid cytology is positive will need oncology follow-up. If the pleural fluid cytology is negative I have spoken with Dr. Chambers and best approach would then be CT guided biopsy of left lung mass. I have made NPO for possible biopsy later today. 10/30 Patient states that he is back to his baseline. Walking in the room. Room air saturations 95%. Pleural fluid LDH 290 with a serum of 291 for a ratio of 1.0. Total protein pleural 4.2 serum total protein 9.0 with ratio 0.47, glucose 127, cholesterol 72, triglycerides 45, albumin 1.7. For CT guided biopsy later today and then DC home. he still is not sure about his follow-up plan [facility]. At this time I have told him he is welcome to follow up with us in the pulmonary clinic and I have given him our business card and will inform our energy scheduler. Spoke with Hanna Palafox and agree to have her arrange for oncology follow up as this is high likelihood of cancer. Discharge on these pulmonary medications: Ipratropium -albuterol 20-100 mcg at 2 puffs q.i.d. rescue albuterol inhaler at 2 puffs Q 4 p.r.n. shortness of breath and wheezing. Follow-up in the Pulmonary Clinic on 4 weeks. Spoke with Hanna Palafox. Subjective Date/time seen: 10/30/20 10:39 Interval history: 10/27 New patient counter for lung mass 70-year-old with a history of hypertension, Parkinson's who presented on 10/26 with shortness of breath and weakness. Patient is followed at [facility] and approximately 1 month ago he was seen at their clinic with shortness of breath and had a chest x-ray that showed an abnormality. Patient was treated for this shortness of breath improved and was discharged with Pulmonary follow-up. Patient has a Pulmonary Clinic follow-up on 10/30/2020. Patient's shortness of breath got worse and on 10/26 he presented to the emergency department with shortness of breath and weakness. A chest x-ray followed by a CT scan showed a large left lung mass with a left pleural effusion. On 10/27/2020 patient underwent a left thoracentesis with 800 mL of clear yellow fluid removed. Prior to the thoracentesis patient said he was feeling better with albuterol and ipratropium nebulizers and after the thoracentesis he said he again felt better and could breathe more freely. Patient miriam
--- NOTE | 2020-10-30 13:23 | PCNFU ---
Nutrition Follow-Up Complete: Nutrition Diagnosis: Inadequate oral intake related to constipation and diarrhea as evidenced by a 50lb weight loss within the last four months. Nutrition Goal: Have patient meet estimated nutritional needs. Goal is in progress, patient is consuming 100% of his meals yesterday, but today is NPO because of procedure. Nutrition recommendation: Continue with Heart Healthy diet and Ensure compact (220 calories and 9 grams of protein) BID. Last recorded weight is 68.3 kg. Recommend obtaining new weight. Bowel Motility: Bowels have normalized, one per day. Last documented on 10/30. Labs Reviewed: Hgb(9), Hct(30.5), Na(133), Ca(11.1), Glu(119) Meds Noted:Albuterol, Norvasc, Lopid, Atrovent, Prinivil, Miralax, Protonix, Colace, Carbidopa Additional Notes: No skin concerns documented, within normal limits. Agree with diet orders, patient is tolerating meals. If everything goes okay today, plan is for discharge tomorrow. Will follow up in 5 days.
--- NOTE | 2020-10-30 13:25 | PC.NURSE ---
Patient transported to radiology for lung biopsy.
[2020-10-30 13:39] LABS: Amylase, Pleural Fluid 16 U/L
--- NOTE | 2020-10-30 13:41 | PC.NURSE ---
On 10/30/20, the student, [ Jessica Louis], provided care and completed [facility] documentation on this patient. I have reviewed the student's documentation and agree with the findings.
--- NOTE | 2020-10-30 14:40 | PCNSR ---
On 10/30/20, the student, [Radha Edwards ], provided care and completed [facility] documentation on this patient. I have reviewed the student's documentation and agree with the findings.
--- NOTE | 2020-10-30 15:36 | PM.DS ---
DS: Admitting Diagnosis Admitting Diagnosis Admitting Diagnosis: Pleural effusion DS: Discharge Diagnosis Discharge Diagnosis (1) Pleural effusion: Code(s): J90 - Pleural effusion, not elsewhere classified Status: Acute Assessment and Plan: Moderate left pleural effusion evident on CTA. Underwent US guided thoracentesis on 10/27/20 with 800 ml clear yellow fluid Pleural fluid consistent with exudative effusion, concerning for malignancy Preliminary fungal and bacterial cultures negative and will be monitored AFB culture pending Pleural fluid cytology without malignant cells therefore lung biopsy was completed on 10/30/20. See below. He had symptomatic improvement following thoracentesis Maintained adequate O2 saturations on room air throughout hospitalization (2) Lung mass: Code(s): R91.8 - Other nonspecific abnormal finding of lung field Status: Acute Assessment and Plan: 10.8 x 10.3 cm soft tissue mass of lingula, likely malignancy with evidence of pericardial or myocardial probable invasion with minimal pericardial effusion and hilar and mediastinal lymphadenopathy. \ Patient noted weight loss and poor appetite. CT-guided left lung biopsy completed on 10/30/20 with pathology pending He will follow up with Dr. Rebolledo (pulmonology) and Dr. Stoddard (oncology) and review results (3) Parkinsons disease: Code(s): G20 - Parkinson's disease Status: Acute Assessment and Plan: No acute issues. Continue carbidopa-levodopa (4) Essential (primary) hypertension: Code(s): I10 - Essential (primary) hypertension Status: Acute Assessment and Plan: Blood pressure reviewed and was generally well controlled. Continue amlodipine (5) Chronic obstructive pulmonary disease, unspecified: Code(s): J44.9 - Chronic obstructive pulmonary disease, unspecified Status: Acute Assessment and Plan: Not in acute exacerbation. Remained stable on room air. Continue Combivent. (6) Microcytic anemia: Code(s): D50.9 - Iron deficiency anemia, unspecified Status: Acute Assessment and Plan: Hemoglobin and hematocrit remained stable. No prior labs available for review. No signs of blood loss and vitals were stable. Iron studies with low iron saturation. B12 and folate wnl. Continue PO ferrous sulfate BID (7) Electrolyte abnormality: Code(s): E87.8 - Other disorders of electrolyte and fluid balance, not elsewhere classified Status: Acute Assessment and Plan: Sodium was low, ranging from 129-133. Could be due to SIADH from possible lung cancer vs sertraline use. Potassium was initially low but improved with supplementation. DS: Summary Hospital Course Hospital Course: date of admission: 10/26/2020 date of discharge: 10/30/2020 Frederick Babb is a 70 year old male with a history of COPD, HTN, and Parkinson's disease who presented to the emergency department on 10/26/20 with complaints of shortness of breath over several months. upon presentation to the emergency department, he was mildly tachycardic with additional vital signs stable, WBC was 13.2, hemoglobin 8.7, hematocrit 29.2, platelets 452, sodium 129, additional electrolytes stable, troponin negative, BNP 1100, lactic 1.3, and CXR showed dense lingular, left lower lobe consolidation. He was admitted to the hospitalist service for further evaluation and management and was seen in consultation by pulmonology. Please see above for further details. He underwent left lung biopsy and will follow-up with pulmonology and oncology as an outpatient. following his biopsy, he was feeling well and was eager for discharge. We discussed worrisome signs and symptoms for which to return and he was educated on his medications. He was discharged in hemodynamically stable condition on 10/30/2020. Status at Discharge Functional status at discharge: independent ambu
--- NOTE | 2020-11-05 14:58 | PC.NURSE ---
Pathology report faxed to Dr. Rebolledo and Dr. Stoddard. Unable to contact PCP.
== END 2020-10-30 17:30 | disposition home or self-care (01) | DRG 181 ==
LOC: ANHED 10-27 01:33 → ANH3MED 10-27 01:41
PROVIDERS: Emergency Medicine; Internal Medicine Pulmonary Disease; Physician Assistant; Admitting Provider Internal Medicine; Emergency Provider Emergency Medicine; Visit Provider Family Medicine
DX: C34.90 Malignant neoplasm of unspecified part of unspecified bronchus or lung (principal); E87.1 Hypo-osmolality and hyponatremia; J90 Pleural effusion, not elsewhere classified; R91.8 Other nonspecific abnormal finding of lung field; E83.52 Hypercalcemia; E87.6 Hypokalemia; D50.9 Iron deficiency anemia, unspecified; G20 Parkinson's disease; E78.00 Pure hypercholesterolemia, unspecified; I10 Essential (primary) hypertension; J44.9 Chronic obstructive pulmonary disease, unspecified; M54.9 Dorsalgia, unspecified; Z77.098 Contact with and (suspected) exposure to other hazardous, chiefly nonmedicinal, chemicals; Z87.891 Personal history of nicotine dependence; Z79.899 Other long term (current) drug therapy
CPT/HCPCS: 32408; 32555; 36415; 71045; 71046; 71275; 80048; 80053; 80076; 82042; 82150; 82607; 82728; 82746; 82945; 83540; 83550; 83605; 83615; 83735; 83880; 83986; 84157; 84311; 84478; 84484; 85014; 85018; 85025; 85027; 85610; 85730; 87015; 87040; 87070; 87075; 87102; 87116; 87205; 87206; 88104; 88108; 88184; 88185; 88305; 88342; 89051; 93005; 93306; 94640; 96374; 99285; A9270; G0378; J3480; Q9967

== ENCOUNTER 2020-11-05 15:30 | Inpatient (IN) | payer MEDICARE, OTHER, SELFPAY ==
[2020-11-05] VITALS (13 sets, daily range): BP systolic 129–145; BP diastolic 48–58; PULSE 82–108; RESP 18–37; TEMP 36.7–36.8; O2SAT 86–100; BMI 24.5
--- NOTE | ~2020-11-05 | CT_ITS ---
EXAMINATION: CTA chest PE protocol DATE: 11/05/2020 17:11 INDICATION: Chest pain. Dyspnea. TECHNIQUE: Computed tomography angiography (CTA) of the chest was performed with 100 mL Omnipaque-350 intravenous contrast timed to evaluate the pulmonary arteries. Coronal maximum intensity projection 3D-reconstructions were created by the technologist. Automated exposure control and iterative reconst ruction technique were employed. The dose-length product was 285.20 mGy-cm. COMPARISON: Chest CT 10/26/2020 FINDINGS: Again seen is a 5 mm nodule in right lung upper lobe. There is a small left pleural effusio n. There is an 11.0 x 12.0 cm mass in left upper lobe with invasion of the pericardium. There is mild mediastinal lymphadenopathy. There is no pulmonary embolus. There is mild thoracic spondylosis. IMPRESSION: 1. No pulmonary embolus. Sensitivity is moderately decreased by motion artifact. 2. 12.0 cm mass in left lung upper lobe with invasion of the pericardium, consistent with non-small c ell lung cancer. 3. Mild mediastinal lymphadenopathy, consistent with metastatic disease. 4. 5 mm right upper lobe pulmonary nodule, which is indeterminate for metastatic disease. 5. Small left pleural effusion. Reviewed, dictated and finalized at location A. IMPRESSION: 1. No pulmonary embolus. Sensitivity is moderately decreased by motion artifact . 2. 12.0 cm mass in left lung upper lobe with invasion of the pericardium, consi stent with non-small cell lung cancer. 3. Mild mediastinal lymphadenopathy, consistent with metastatic disease. 4. 5 mm right upper lobe pulmonary nodule, which is indeterminate for metastati c disease. 5. Small left pleural effusion.
--- NOTE | ~2020-11-05 | XR_ITS ---
EXAMINATION: XR chest 2V DATE: 11/05/2020 15:50 INDICATION: Dyspnea. Cough. TECHNIQUE: Frontal and lateral views of the chest were obtained. COMPARISON: Chest single view 10/30/2020 FINDINGS: There is a mass in left lung upper lobe. There is a small left pleural effusion. There are airspace opacities in basilar left lower lobe. No pneumothorax. The heart size is normal. IMPRESSION: 1. Mass in left lung upper lobe, consistent with non-small cell lung cancer. 2. Stable small left pleural effusion. 3. Improved airspace opacities at left lung base, consistent with atelectasis versus pneumonia. Reviewed, dictated and finalized at location A. IMPRESSION: 1. Mass in left lung upper lobe, consistent with non-small cell lung cancer. 2. Stable small left pleural effusion. 3. Improved airspace opacities at left lung base, consistent with atelectasis v ersus pneumonia.
--- NOTE | ~2020-11-05 | XR_ITS ---
EXAMINATION: XR chest 1V portable DATE: 11/09/2020 06:36 INDICATION: Shortness of breath TECHNIQUE: frontal view of the chest was obtained. COMPARISON: Chest radiograph and CT dated 11/05/2020 FINDINGS: Increasing opacity in the left lower lung zone most likely representing increase in a small pleural e ffusion surrounding a lingular mass, the latter biopsy-proven non small cell carcinoma. Increasing pu lmonary vascular congestion without ariadne pulmonary edema. No pneumothorax or right-sided pleural eff usion. The left border of the normal sized heart is partially obscured. IMPRESSION: 1. Increasing small left pleural effusion surrounding a large lingular mass consistent with biopsy-pr oven non-small cell carcinoma. Superimposed pneumonia not excludable. Reviewed, dictated and finalized at location A. IMPRESSION: 1. Increasing small left pleural effusion surrounding a large lingular mass con sistent with biopsy-proven non-small cell carcinoma. Superimposed pneumonia not excludable.
--- NOTE | 2020-11-05 15:38 | ECG_ITS ---
Measurements Intervals Cut Off Rate: 99 P: 6 ME: 140 QRS: 65 QRSD: 99 T: 113 QT: 280 QTc: 360 Interpretive Statements SINUS RHYTHM INCOMPLETE RIGHT BUNDLE BRANCH BLOCK LOW QRS VOLTAGE IN LIMB LEADS BORDERLINE ST-T WAVE ABNORMALITY- DIFFUSE LEADS BASELINE ARTIFACT- I, II, AVR, AVL,A VF, V1-V6 BORDERLINE ECG Electronically Signed On 11-05-2020 16:26:51 CDT by Kem Kiran D.O.
[2020-11-05 15:51] LABS: Basophils Percent Auto 0.3 % (0.2-1.2); Eosinophils Percent Auto 0.3 % (0-4.4); Hemoglobin 9.1 g/dL (14.0-18.0); Immature Granulocyte Absolute 0.08 K/mm3 (0.00-0.031); Immature Granulocyte Percent A 0.7 % (0-0.5); Lymphocytes Absolute Auto 0.83 K/mm3 (0.9-3.2); Lymphocytes Percent Auto 7.2 % (18.3-44.2); Mean Corpuscular HGB Conc 29.4 g/dl (32-36); Mean Corpuscular Hemoglobin 21.4 pg (26-34); Mean Corpuscular Volume 72.8 fl (80-100); Monocytes Absolute Auto 0.9 K/mm3 (0.1-0.6); Monocytes Percent Auto 7.5 % (2.6-8.5); Neutrophils Absolute Auto 9.7 K/mm3 (1.3-6.7); Platelet Count Result 486 k/mm3 (150-375); Red Blood Count 4.26 M/mm3 (4.6-6.20); Red Cell Distribution Width 16.8 % (11.5-14.5); White Blood Count 11.5 K/mm3 (4.5-10.0)
[2020-11-05 16:01] LABS: Anion Gap 7 mmol/L (8-16); Blood Urea Nitrogen 9 mg/dL (9-20); Carbon Dioxide 30 mmol/L (22-30); Chloride 93 mmol/L (98-107); Estimated CRCL calculation 62 ml/min; Estimated Glomerular Filt Rate > 60; Glucose 111 mg/dL (75-110); Potassium 3.4 mmol/L (3.4-5.0); Sodium 130 mmol/L (137-145)
--- NOTE | 2020-11-05 16:19 | ED.SOB ---
HPI - SOB/Dyspnea General Chief Complaint: Shortness of Breath/Dyspnea Stated Complaint: Difficulty Breathing Time Seen by Provider: 11/05/20 15:56 Source: RN notes reviewed History of Present Illness HPI Narrative: Patient presents to emergency department from home for shortness of breath. Patient states that he has had progressive shortness of breath for the past 3 weeks. He states he was diagnosed with a left lung mass and supposed be seen Dr. Jeffrey for oncology this coming Monday he states that he has had a cough that is been productive he denies any fevers or chills, chest pain abdominal pain nausea vomiting or any other symptoms of concern. States he quit smoking 30 years ago Related Data Home Medications Medication Instructions Recorded Confirmed amlodipine 5 mg tablet 5 mg PO DAILY 06/14/19 10/27/20 ipratropium 20 mcg-albuterol 100 1 puff INHALATION QID 06/14/19 10/27/20 mcg/actuation mist for inhalation lisinopril 5 mg tablet 40 mg PO DAILY 06/14/19 10/27/20 polyethylene glycol 3350 17 17 gm PO DAILY 06/14/19 10/27/20 gram/dose oral powder Guaifenesin DM 5 ml BYMOUTH QID PRN 10/27/20 10/27/20 albuterol 90 mcg INHALATION QID 10/27/20 10/27/20 carbidopa-levodopa 2 tablet BYMOUTH TID 10/27/20 10/27/20 carboxymethylcellulose sodium 1 drp EACH EYE QID PRN 10/27/20 10/27/20 cholecalciferol (vitamin D3) 25 mcg BYMOUTH DAILY 10/27/20 10/27/20 ferrous sulfate 325 mg PO BID 10/27/20 10/27/20 meloxicam 15 mg PO DAILY 10/27/20 10/27/20 omeprazole 20 mg PO DAILY 10/27/20 10/27/20 sertraline 100 mg PO HS 10/27/20 10/27/20 simvastatin 40 mg PO DAILY 10/27/20 10/27/20 testosterone 20.25 mg TOPICAL DAILY 10/27/20 10/27/20 Allergies Allergy/AdvReac Type Severity Reaction Status Date / Time No Known Allergies Allergy Mild Verified 11/05/20 16:06 Review of Systems Review of Systems: Narrative: Gen.: Denies fevers or chills ENT: Denies congestion Respiratory: See HPI CV: Denies chest pain or palpitations GI: Denies abdominal pain nausea, emesis or diarrhea Musculoskeletal: Denies back pain or muscle pain Neuro: Denies numbness, tingling, weakness or focal weakness Skin: Denies rash Except as documented, all other systems reviewed and negative [facility] Past Medical History Medical History Agent orange exposure Anemia, unspecified Body mass index (BMI) 35.0-35.9, adult (01/01/19) Changing skin lesion Chronic obstructive pulmonary disease, unspecified Dorsalgia, unspecified Essential (primary) hypertension Former smoker Hyperglycemia Hypersomnia Memory loss Other fatigue Parkinsons disease Pure hypercholesterolemia Tremor Urinary incontinence Family History Family History Father Family history of malignant neoplasm Mother Patient's mother is in good health Patient's mother is , Onset Age: 69 Family history of malignant neoplasm of brain Family history of malignant neoplasm of bone Family history of malignant neoplasm of uterus Social History Social History Smoking packs per day: 3 Smoking cigarettes per day: 60.0 Years smoked: 28 Smoking pack-years: 84.00 Smoking status: Former smoker Tobacco type: cigarettes Second hand tobacco smoke exposure: Yes Smoking end date: 04/24/00 Alcohol intake: never Substance use: never Substance use type: does not use Gender identity (if verbalized by the patient): Male Spiritual care concerns: No Exam Narrative: Exam Narrative: APPEARANCE: Moderate respiratory distress nontoxic, resting in bed HEENT: Normocephalic, atraumatic OMM RESPIRATORY: Moderate respiratory distress sitting upright speaking short phrases coarse breath sounds throughout the bilateral lung bruno CARDIOVASCULAR: Regular rate and rhythm without murmurs rubs or gallops. ABDOMINAL: Soft, nontender, nondis
[2020-11-05 16:26] LABS: Anisocytosis 1+ (NORMAL); Hypochromasia 1+ (NORMAL); Platelet Estimate Adequate (Adequate)
[2020-11-05] MEDS: ALBUTEROL SULFATE NEB 2.5 MG/0.5 ML INH 5 MG INHALATION ×2 (16:27→22:09)
[2020-11-05] MEDS: methylPREDNISolone SOD SUCC 125 MG VIAL IV PUSH (16:27)
[2020-11-05] MEDS: IPRATROPIUM BR 0.02% INH SOLN 0.5 MG/2.5 ML VIAL INHALATION ×2 (16:28→22:09)
[2020-11-05 16:33] LABS: Alveolar/Arterial O2 Gradient 87.6 mmHg; Fractional Inspired Oxygen 28 %; HCO3 ABG 28.4 mEq/l (22.0-26.0); Oxygen Content ABG 12.7 %vol (16.0-22.0); Oxygen Saturation ABG 95.2 % (95.0-100.0); Oxyhemoglobin 92.9 % THb (90.0-100.0); PO2 ABG 68.4 mmHg (80.0-100.0); PO2 FiO2 Ratio Arterial Blood 2.44 %; Total Hemoglobin 9.7 g/dL (12.0-18.0)
[2020-11-05 16:37] LABS: Device NASAL CANNULA; Modified Allen's Test Pass; Site Drawn LEFT RADIAL; pH ABG 7.503 (7.350-7.450)
[2020-11-05 18:10] LABS: Troponin I < 0.012 ng/mL (0.000-0.034)
[2020-11-05 18:19] LABS: Lactic Acid Reflex 1.4 mmol/L (0.7-2.1)
[2020-11-05 18:49] LABS: INR 1.2; Prothrombin Time 14.8 Seconds (11.1-14.7)
[2020-11-05 18:51] LABS: Partial Thromboplastin Time 35.7 SECONDS (22.3-36.8)
--- NOTE | 2020-11-05 19:15 | PC.NURSE ---
report to juani chino
--- NOTE | 2020-11-05 22:25 | PC.NURSE ---
This patient, Frederick Babb, was admitted to Medical Room 258-01. Patient/family oriented to hospital policies and general routines including ID bracelet, bed and alarms, visiting hours, pain management, procedures, bathroom and other care routines, personal items, smoking policy, room service/diet, and visiting hours. Information on how to activate the Rapid Response Team has been discussed. Patient/Family are encouraged to report perceived risks to care and to ask questions if they do not understand what they are told or what they should do.
--- NOTE | 2020-11-05 23:45 | PM.IMHP ---
H&P: HPI History of Present Illness Date/Time: 11/05/20 23:45Thingozi is a 70-year-old male patient who was recently diagnosed with non-small cell carcinoma from a biopsy he had on 10/30/2020. The patient stated that he has an appointment with Dr. cintron at on this next Monday. The patient has a history of COPD as well. He is does not wear any oxygen at home. The patient has been short of breath for at least the last 3 weeks. The patient has a large left lung mass. The patient denied any fever chills. The patient feels that he may need to have oxygen at home. Patient's pulse ox was noted to be 86%. He was placed on oxygen at 2 L per nasal cannula. His oxygen level then came up between 95 and 100%. His white count is noted to be 11.5. H&H is 9.1 and 31.0. ABGs pH was 7.503 PO2 was 68.4. Bicarb 28.4. CO2 was within normal limits. Sodium is 130. Chest x-ray was read as mass in left lung upper lobe consistent with non-small cell carcinoma. Stable small left pleural effusion. Improved airspace opacities of the left lung base consistent with atelectasis and pneumonia. CTA was read as the following. . 1No pulmonary embolus. Sensitivity is moderately decreased by motion artifact. 2. 12.0 cm mass in left lung upper lobe with invasion of the pericardium, consistent with non-small cell lung cancer. 3. Mild mediastinal lymphadenopathy, consistent with metastatic disease. 4. 5 mm right upper lobe pulmonary nodule, which is indeterminate for metastatic disease. 5. Small left pleural effusion. The patient was given Solu-Medrol and neb treatments in the emergency room. The patient is being admitted to inpatient services on the date of service of 11/05/2020. Chief Complaint: Shortness of breath Review of Systems Review of Systems: All systems reviewed & are unremarkable except as noted in HPI and below Constitutional: Constitutional: Reports as per HPI and Reports no additional constitutional complaints Eyes: Eyes: Reports as per HPI and Reports no additional eye complaints ENT: Reports system reviewed and no additional complaints, except as documented and Reports Normal hearing present Cardiovascular: Cardiovascular: Reports no additional cardiovascular complaints Respiratory: Respiratory: Reports no additional respiratory complaints and Reports no additional respiratory complaints Gastrointestinal: Gastrointestinal: Reports as per HPI and Reports no additional gastrointestinal complaints Musculoskeletal: Musculoskeletal: Reports no additional musculoskeletal complaints Integumentary/Breasts: Skin/Breast: Reports system reviewed and no additional complaints, except as docu and Reports as per HPI Neurologic: Reports system reviewed and no additional complaints, except as documented, Reports as per HPI and Reports Normal hearing present Psychiatric: Psychiatric: Reports no additional psychiatric complaints and Reports as per HPI Endocrine: Endocrine: Reports no additional endocrine complaints Hematologic/Lymphatic: Hematologic/Lymphatic: Reports no additional hematologic/lymphatic complaints Allergic/Immunologic: Allergic/Immunologic: Reports no additional allergic/immunologic complaints [facility] Past Medical History Medical History (Updated 11/05/20 @ 23:57 by Alicia Pearson NP) Agent orange exposure Anemia, unspecified Body mass index (BMI) 35.0-35.9, adult (01/01/19) Changing skin lesion Chronic obstructive pulmonary disease, unspecified Depression with anxiety Dorsalgia, unspecified Essential (primary) hypertension Former smoker Hyperglycemia Hypersomnia Memory loss Other fatigue Parkinsons disease Pure hypercholesterolemia Tremor Urinary incontinence Family History Family History Mother Patient's mother is in good health Patient's mother is , Onset Age: 69 Family history of malignant neoplasm of brain Family history of malignant neoplasm of bone Famil
[2020-11-06] VITALS (16 sets, daily range): BP systolic 111–130; BP diastolic 45–60; PULSE 66–100; RESP 18–20; TEMP 36–36.6; O2SAT 94–96; BMI 24.5
[2020-11-06] MEDS: methylPREDNISolone SOD SUCC 125 MG VIAL 60 MG IV PUSH ×2 (00:08→08:36)
[2020-11-06] MEDS: SERTRALINE HCL 50 MG TABLET 100 MG PO ×2 (01:12→21:37)
[2020-11-06] MEDS: ALBUTEROL SULFATE NEB 2.5 MG/0.5 ML INH 5 MG INHALATION ×4 (02:18→17:36)
[2020-11-06] MEDS: IPRATROPIUM BR 0.02% INH SOLN 0.5 MG/2.5 ML VIAL INHALATION ×4 (02:19→17:36)
[2020-11-06 05:48] LABS: Hematocrit 27.3 % (42.0-52.0); Immature Granulocyte Absolute 0.03 K/mm3 (0.00-0.031); Immature Granulocyte Percent A 0.5 % (0-0.5); Lymphocytes Absolute Auto 0.28 K/mm3 (0.9-3.2); Lymphocytes Percent Auto 4.5 % (18.3-44.2); Mean Corpuscular HGB Conc 29.3 g/dl (32-36); Mean Corpuscular Hemoglobin 21.1 pg (26-34); Mean Corpuscular Volume 71.8 fl (80-100); Mean Platelet Volume 9.2 fl (7.4-10.4); Monocytes Absolute Auto 0.1 K/mm3 (0.1-0.6); Monocytes Percent Auto 0.8 % (2.6-8.5); Neutrophils Absolute Auto 5.9 K/mm3 (1.3-6.7); Neutrophils Percent Auto 94.2 % (45.5-73.1); Platelet Count Result 400 k/mm3 (150-375); Red Cell Distribution Width 16.8 % (11.5-14.5); White Blood Count 6.2 K/mm3 (4.5-10.0)
[2020-11-06 05:58] LABS: Alanine Aminotransferase 17 U/L (4-50); Albumin Level 3.3 g/dL (3.5-5.1); Alkaline Phosphatase 100 U/L (38-126); Anion Gap 9 mmol/L (8-16); Aspartate Amino Transferase 20 U/L (17-59); Bilirubin,Total 0.4 mg/dL (0.2-1.3); Blood Urea Nitrogen 12 mg/dL (9-20); Calcium 11.5 mg/dL (8.4-10.2); Carbon Dioxide 27 mmol/L (22-30); Chloride 96 mmol/L (98-107); Estimated CRCL calculation 70 ml/min; Estimated Glomerular Filt Rate > 60; Glucose 184 mg/dL (75-110); Potassium 3.4 mmol/L (3.4-5.0); Sodium 132 mmol/L (137-145)
[2020-11-06 06:23] LABS: Hypochromasia 1+ (NORMAL); Platelet Estimate Increased (Adequate)
[2020-11-06] MEDS: lisinopriL 5 MG TABLET PO (08:35)
[2020-11-06] MEDS: amLODIPine BESYLATE 5 MG TABLET PO (08:35)
[2020-11-06] MEDS: CHOLECALCIFEROL 1,000 UNITS TABLET 1000 UNITS PO (08:35)
[2020-11-06] MEDS: FERROUS SULFATE 324 MG TABLET PO ×2 (08:35→17:47)
[2020-11-06] MEDS: PANTOPRAZOLE 40 MG TABLET PO (08:35)
[2020-11-06] MEDS: MELOXICAM 7.5 MG TABLET 15 MG PO (08:36)
[2020-11-06] MEDS: ENOXAPARIN 40 MG/0.4 ML SYRINGE SUB-Q (08:36)
[2020-11-06] MEDS: polyethylene glycoL 3350 17 GM POWD.PACK PO (08:36)
[2020-11-06] MEDS: CARBIDOPA/LEVODOPA 25/100 MG TABLET 2 TABLET BY MOUTH ×3 (08:36→17:47)
--- NOTE | 2020-11-06 13:55 | PM.IMPN ---
Progress Note: A&P Assessment and Plan (1) Acute respiratory failure with hypoxia: Code(s): J96.01 - Acute respiratory failure with hypoxia Status: Acute Assessment and Plan: Pt is on 2L of o2 and continues to have TOBIN, conversational dyspnea, and a productive cough -Pt has a large mass in his left lung which is about 12cm with lymphadenopathy and pleural effusion -will likely need o2 indefinitely -no signs of infx at this time -pt was started on steroids in ER. Will start to wean these -hx of COPD but quit smoking 30 years ago. -Continue breathing treatments (2) Lung cancer: Code(s): C34.90 - Malignant neoplasm of unspecified part of unspecified bronchus or lung Status: Acute Assessment and Plan: Pathology shows non-small cell with mediastinal lymphadenopathy -will need PET scan for staging -Dr. Stoddard consulted (3) Parkinsons disease: Code(s): G20 - Parkinson's disease Status: Acute Assessment and Plan: Chronic -Continue Sinemet (4) Essential (primary) hypertension: Code(s): I10 - Essential (primary) hypertension Status: Acute Assessment and Plan: Last bp 128/49 -Continue Norvasc and lisinopril (5) Chronic obstructive pulmonary disease, unspecified: Code(s): J44.9 - Chronic obstructive pulmonary disease, unspecified Status: Acute Assessment and Plan: Continue to wean steroids -Continue with nebulizer treatments (6) Depression with anxiety: Code(s): F41.8 - Other specified anxiety disorders Status: Chronic Assessment and Plan: Stable - Continue with sertraline (7) Hypercalcemia: Code(s): E83.52 - Hypercalcemia Status: Acute Assessment and Plan: Calcium 11.5 -Could due to cancer but check PTH and vit D Additional Plan Sodium 132 likely due to cancer chronic anemia Time Spent With Patient Time with patient: 25 - 35 minutes Subjective Date/time seen: 11/06/20 13:55 Interval history: Pt is a 70-year-old male here for hypoxia due to lung cancer. Patient was seen today and states he still feels short of breath. He says it is worse when he is moving, talking or when he lies flat. He says the oxygen is really helping him. He feels were out and exhausted. He has many questions about his treatment plan. he continues to have cough productive of sputum. He has aches and pains but other than that no other complaints. No chest pain Review of Systems Review of Systems: All systems reviewed & are unremarkable except as noted in HPI and below Exam Narrative: Exam Narrative: General: Well developed well nourished patient in NAD HEENT: normocephalic Neck: supple Neuro: Alert and oriented x4 CV:RRR Resp: coarse breath sounds and decreased breath sounds left lung. Patient has conversational dyspnea. He is on 2 L of oxygen. He had a productive cough on exam Abd: Soft, non distended. No pain to palpation. Positive bowel sounds Extremities: No swelling, erythema, or pain to palpation. Objective Data Vital Signs Vital Signs: Vital Signs - 24 hr 11/05/20 15:35 11/05/20 16:00 11/05/20 16:02 Temperature 98.0 F Pulse Rate 108 H Respiratory Rate 22 H Blood Pressure 145/57 H Pulse Oximetry 98 86 L 96 11/05/20 16:06 11/05/20 16:28 11/05/20 16:40 Temperature Pulse Rate 101 H 101 H 100 Respiratory Rate 37 H 20 Blood Pressure Pulse Oximetry 11/05/20 18:03 11/05/20 20:00 11/05/20 20:38 Temperature 98.2 F Pulse Rate 93 86 88 Respiratory Rate 30 H 20 Blood Pressure 129/58 L 144/48 H Pulse Oximetry 100 95 11/05/20 22:12 11/05/20 22:13 11/05/20 22:16 Temperature Pulse Rate 82 Respiratory Rate 18 Blood Pressure Pulse Oximetry 94 95 11/05/20 22:22 11/06/20 00:00 11/06/20 02:19 Temperature Pulse Rate 82 78 67 Respiratory Rate 18 18 Blood Pressure Pulse Oximetry
--- NOTE | 2020-11-06 15:29 | PDONCCN ---
HPI - Date of Consult Date/Time: 11/06/20 15:29 Requesting Physician: Jennifer Torres PA-C Primary Care Provider: [facility] - Consult Narrative Reason for consult: Locally advanced wms-lcorh-cohz lung cancer Narrative: Frederick Babb is a 70 year old male with history of smoking quit in 2000 along with history of Parkinson disease came into the hospital with cough that has been going on since May of 2020. He recently fell and was brought into the hospital. Patient was recently diagnosed with non-small cell lung cancer status post biopsy done on October 30, 2020. He has appointment to see me next week. Patient has a history of mild COPD. He does not use oxygen at home. Currently he is on oxygen and still feeling quite short of breath. He denies any hemoptysis but does have chronic cough. He feels quite tired and fatigued. He denies any melena hematochezia. Blood showed hemoglobin of 8.0. CT chest was done that showed 12 cm mass in the left upper lobe lung with invasion of the pericardium along with mild mediastinal lymphadenopathy and 5 mm right upper lobe pulmonary nodule indeterminate for metastatic disease. There was small left-sided pleural effusion. Patient have left-sided thoracentesis done on October 27 that came back no evidence of malignancy. Review of Systems - Review of Systems All systems reviewed & are unremarkable except as noted in HPI and bel - Neurologic Reports system reviewed and no additional complaints, except as documented, Reports hearing normal [facility] Medical History: Medical History (Last Updated 11/05/20 @ 23:57 by Alicia Pearson NP) Agent orange exposure Anemia, unspecified Body mass index (BMI) 35.0-35.9, adult Onset Date: 01/01/19 Changing skin lesion Chronic obstructive pulmonary disease, unspecified Depression with anxiety Dorsalgia, unspecified Essential (primary) hypertension Former smoker Hyperglycemia Hypersomnia Memory loss Other fatigue Parkinsons disease Pure hypercholesterolemia Tremor Urinary incontinence Family History: Family History (Last Reviewed 11/05/20 @ 23:51 by Alicia Pearson NP) Mother Patient's mother is in good health Patient's mother is , Onset Age: 69 Family history of malignant neoplasm of brain Family history of malignant neoplasm of bone Family history of malignant neoplasm of uterus - Social History Social History: Social History (Last Updated 11/05/20 @ 23:53 by Alicia Pearson NP) Gender Identity: Gender identity (if verbalized by the patient): Male Sexual Orientation: Sexual Orientation (if Verbalized by the Patient): Lesbian, Zaragoza, or Homosexu Alcohol Use: Alcohol intake: never Substance Use: Substance use: never Substance use type: does not use Others: Spiritual care concerns: No Smoking Status: Smoking status: Former smoker Tobacco type: cigarettes Second hand tobacco smoke exposure: Yes Smoking end date: 04/24/00 Approximate Smoking End Date: 30 years ago Smoking Pack-years: Smoking packs per day: 3.5 Smoking cigarettes per day: 70.0 Years smoked: 11 Smoking pack-years: 38.50 Meds Home Medications Medication Instructions Recorded Confirmed Type amlodipine 5 mg tablet 5 mg PO DAILY 06/14/19 11/05/20 History ipratropium 20 mcg-albuterol 100 1 puff INHALATION QID 06/14/19 11/05/20 History mcg/actuation mist for inhalation lisinopril 5 mg tablet 5 mg PO DAILY 06/14/19 11/05/20 History polyethylene glycol 3350 17 17 gm PO DAILY 06/14/19 11/05/20 History gram/dose oral powder Guaifenesin DM 5 ml BYMOUTH QID PRN 10/27/20 11/05/20 History albuterol 90 mcg INHALATION QID 10/27/20 11/05/20 History carbidopa-levodopa 2 tablet BYMOUTH TID 10/27/20 11/05/20 History carboxymethylcellulose sodium 1 drp EACH EYE QID PRN 10/27/20 11/05/20 History cholecalciferol (vitamin D3) 25 mcg BYMOUTH DAILY 10/27/20 07
[2020-11-06 18:11] LABS: Glucose Point of Care 190 mg/dl (65-105)
[2020-11-06] MEDS: ACETAMINOPHEN 325 MG TABLET 650 MG PO (18:36)
[2020-11-06] MEDS: methylPREDNISolone SOD SUCC 40 MG VIAL IV PUSH (21:37)
[2020-11-06 22:10] LABS: Glucose Point of Care 189 mg/dl (65-105)
[2020-11-07] VITALS (22 sets, daily range): BP systolic 125–139; BP diastolic 50–60; PULSE 65–106; RESP 18–40; TEMP 36–36.3; O2SAT 87–98
[2020-11-07] MEDS: IPRATROPIUM BR 0.02% INH SOLN 0.5 MG/2.5 ML VIAL INHALATION ×4 (02:55→21:24)
[2020-11-07] MEDS: ALBUTEROL SULFATE NEB 2.5 MG/0.5 ML INH 5 MG INHALATION ×4 (02:55→21:24)
[2020-11-07 05:43] LABS: Hematocrit 31.6 % (42.0-52.0); Hemoglobin 9.4 g/dL (14.0-18.0); Mean Corpuscular HGB Conc 29.7 g/dl (32-36); Mean Corpuscular Hemoglobin 21.4 pg (26-34); Mean Corpuscular Volume 71.8 fl (80-100); Platelet Count Result 598 k/mm3 (150-375); Red Cell Distribution Width 16.9 % (11.5-14.5); White Blood Count 14.6 K/mm3 (4.5-10.0)
[2020-11-07 05:54] LABS: Anion Gap 10 mmol/L (8-16); Blood Urea Nitrogen 20 mg/dL (9-20); Carbon Dioxide 27 mmol/L (22-30); Chloride 98 mmol/L (98-107); Estimated CRCL calculation 70 ml/min; Estimated Glomerular Filt Rate > 60; Glucose 168 mg/dL (65-110); Potassium 3.7 mmol/L (3.4-5.0); Sodium 135 mmol/L (137-145)
[2020-11-07 06:06] LABS: Parathyroid Intact 8.6 pg/mL (7.5-53.5)
[2020-11-07 07:07] LABS: Vitamin D 25 Hydroxy 28.8 ng/mL
[2020-11-07 09:33] LABS: Glucose Point of Care 208 mg/dl (65-105)
[2020-11-07] MEDS: INSULIN ASPART (*BKC) 100 UNITS/ML SUB-Q ×2 (09:37→13:24)
[2020-11-07] MEDS: FERROUS SULFATE 324 MG TABLET PO ×2 (09:37→16:47)
[2020-11-07] MEDS: ENOXAPARIN 40 MG/0.4 ML SYRINGE SUB-Q (09:38)
[2020-11-07] MEDS: MELOXICAM 7.5 MG TABLET 15 MG PO (09:38)
[2020-11-07] MEDS: amLODIPine BESYLATE 5 MG TABLET PO (09:38)
[2020-11-07] MEDS: lisinopriL 5 MG TABLET PO (09:38)
[2020-11-07] MEDS: CARBIDOPA/LEVODOPA 25/100 MG TABLET 2 TABLET BY MOUTH ×3 (09:38→16:47)
[2020-11-07] MEDS: CHOLECALCIFEROL 1,000 UNITS TABLET 1000 UNITS PO (09:38)
[2020-11-07] MEDS: PANTOPRAZOLE 40 MG TABLET PO (09:39)
[2020-11-07] MEDS: polyethylene glycoL 3350 17 GM POWD.PACK PO (09:39)
[2020-11-07] MEDS: methylPREDNISolone SOD SUCC 40 MG VIAL IV PUSH (09:39)
--- NOTE | 2020-11-07 10:46 | PM.IMPN ---
Progress Note: A&P Assessment and Plan (1) Acute respiratory failure with hypoxia: Code(s): J96.01 - Acute respiratory failure with hypoxia Status: Acute Assessment and Plan: Pt is on 2L of o2 and continues to have TOBIN, conversational dyspnea, and a dry cough; some improvement however. Likely related to large mass in left lung with associated pleural effusion, but possible mild COPD exacerbation with improvement in breathing tx and IV steroids. Overall, clinically improved. No signs of acute infection at this time. Home O2 evaluation today or tomorrow; will likely need o2 indefinitely Pt was started on steroids in ER. Will cont to wean these; consider PO steroid taper at discharge Continue breathing treatments Wean O2 as tolerated Monitor (2) Lung cancer: Code(s): C34.90 - Malignant neoplasm of unspecified part of unspecified bronchus or lung Status: Acute Assessment and Plan: Pathology shows non-small cell carcinoma with mediastinal lymphadenopathy. Dr. Stoddard consulted and appreciate rec; appt on 11/[address] Stoddard in office. Pt will need PET scan for staging Cont Dr. Stoddard rec; appreciate input (3) Parkinsons disease: Code(s): G20 - Parkinson's disease Status: Acute Assessment and Plan: Chronic Continue Sinemet (4) Essential (primary) hypertension: Code(s): I10 - Essential (primary) hypertension Status: Acute Assessment and Plan: Last bp 139/52 Continue Norvasc and lisinopril (5) Chronic obstructive pulmonary disease, unspecified: Code(s): J44.9 - Chronic obstructive pulmonary disease, unspecified Status: Acute Assessment and Plan: Possible mild COPD exacerbation; clinically improving. Continue to wean steroids as above Continue with nebulizer treatments; pt requested refill for home neb tx at discharge Monitor (6) Depression with anxiety: Code(s): F41.8 - Other specified anxiety disorders Status: Chronic Assessment and Plan: Stable Continue with sertraline (7) Hypercalcemia: Code(s): E83.52 - Hypercalcemia Status: Acute Assessment and Plan: Calcium 12.0; likely related to Ca. Vit D borderline; PTH lower limits of normal Monitor Additional Plan #Hyponatremia - 135, likely due to cancer, monitor #chronic anemia - pt reports dark stools, but no obvious melena sx; no BRBPR. Appreciate Dr. Stoddard's rec in regards to GI consultation; GI coverage limited the next couple days. H&H stable. Can consider GI consult for possible EGD/colonoscopy Monday if pt still admitted, however, with stable H&H and no obvious signs of acute blood loss, this may need to be deferred until OP setting. Pt has colonoscopy scheduled in Jan at [place], but advised to try to move up appt or get in to see GI sooner; also offered GI referral at time of discharge which he is agreeable. Subjective Date/time seen: 11/07/20 10:46 Interval history: Patient is a 70 yo M with COPD, recent dx of bx-proven non-small cell lung cancer, HTN, Dep/anxiety among other comorbid conditions who is seen in follow up for acute respiratory failure with hypoxia possibly multifactorial due to possible mild COPD exac and large lung mass. Pt states he feels somewhat better today. Feels his SOB, increased work of breathing, and cough are still present, but improved since admission. Denies wheezing. Cough is dry; denies hemoptysis. He does report dark, softer stools but notes he was recently placed on oral iron supplementation; denies tarry stools or BRBPR. He is complaining of buttock soreness due to recent weight loss; requests extra
--- NOTE | 2020-11-07 12:13 | HOMEO2EVAL ---
Evaluation was performed at [facility] Home Oxygen Evaluation RC: Home Oxygen (O2) Evaluation Start: 11/07/20 10:51 Freq: ONCE Status: Active Protocol: RPE Activity Type Activity Date Activity User E-Sign Co-Sign Detail Recorded Client Recorded Date Recorded By Document 11/07/20 11:51 CLC [email or web address] 11/07/20 12:13 CLC Document 11/07/20 11:53 CLC [email or web address] 11/07/20 12:13 CLC Document 11/07/20 11:58 CLC [email or web address] 11/07/20 12:13 CLC 11/07/20 11/07/20 11/07/20 11:51 11:53 11:58 Home O2 Evaluation Test Phase Resting Resting Exercise Oxygen Delivery Room Air Nasal Cannula Nasal Cannula Oxygen Flow Rate (L/min) 2 2 Pulse Oximetry (90-100 %) 87 L 92 92 Pulse Rate (60-100 beats/min) 98 97 106 H Activity Tolerance Fair Rating of Perceived Dyspnea (PD) +3 Moderate Difficulty, But Can Continue Rate of Perceived Exertion (PE) 13 Somewhat Hard Ambulation Distance (feet) 75 Treatment Charges O2 Evaluation - Inpatient
[2020-11-07 12:29] LABS: Glucose Point of Care 205 mg/dl (65-105)
[2020-11-07 17:39] LABS: Glucose Point of Care 140 mg/dl (65-105)
[2020-11-07] MEDS: SERTRALINE HCL 50 MG TABLET 100 MG PO (20:58)
[2020-11-07] MEDS: ACETAMINOPHEN 325 MG TABLET 650 MG PO (20:59)
[2020-11-07 23:43] LABS: Glucose Point of Care 129 mg/dl (65-105)
[2020-11-08] VITALS (18 sets, daily range): BP systolic 124–149; BP diastolic 61–65; PULSE 76–94; RESP 18–44; TEMP 36–36.4; O2SAT 94–96
[2020-11-08] MEDS: IPRATROPIUM BR 0.02% INH SOLN 0.5 MG/2.5 ML VIAL INHALATION ×4 (02:49→20:23)
[2020-11-08] MEDS: ALBUTEROL SULFATE NEB 2.5 MG/0.5 ML INH 5 MG INHALATION ×4 (02:49→20:23)
[2020-11-08 05:52] LABS: Basophils Percent Auto 0.1 % (0.2-1.2); Eosinophils Percent Auto 0.1 % (0-4.4); Hematocrit 34.6 % (42.0-52.0); Hemoglobin 9.9 g/dL (14.0-18.0); Immature Granulocyte Absolute 0.09 K/mm3 (0.00-0.031); Immature Granulocyte Percent A 0.6 % (0-0.5); Lymphocytes Absolute Auto 1.04 K/mm3 (0.9-3.2); Lymphocytes Percent Auto 6.5 % (18.3-44.2); Mean Corpuscular HGB Conc 28.6 g/dl (32-36); Mean Corpuscular Hemoglobin 21.2 pg (26-34); Mean Corpuscular Volume 73.9 fl (80-100); Monocytes Absolute Auto 1.1 K/mm3 (0.1-0.6); Monocytes Percent Auto 6.9 % (2.6-8.5); Neutrophils Absolute Auto 13.8 K/mm3 (1.3-6.7); Neutrophils Percent Auto 85.8 % (45.5-73.1); Platelet Count Result 608 k/mm3 (150-375); Red Blood Count 4.68 M/mm3 (4.6-6.20); Red Cell Distribution Width 17.2 % (11.5-14.5)
[2020-11-08 06:14] LABS: Anion Gap 6 mmol/L (8-16); Blood Urea Nitrogen 21 mg/dL (9-20); Calcium 11.8 mg/dL (8.4-10.2); Carbon Dioxide 34 mmol/L (22-30); Chloride 96 mmol/L (98-107); Estimated CRCL calculation 62 ml/min; Estimated Glomerular Filt Rate > 60; Glucose 90 mg/dL (65-110); Potassium 3.5 mmol/L (3.4-5.0); Sodium 136 mmol/L (137-145)
--- NOTE | 2020-11-08 07:48 | PM.IMPN ---
Progress Note: A&P Assessment and Plan (1) Acute respiratory failure with hypoxia: Code(s): J96.01 - Acute respiratory failure with hypoxia Status: Acute Assessment and Plan: Pt is on 2L of o2 and continues to have TOBIN, conversational dyspnea,some improvement however. Likely related to large mass in left lung with associated pleural effusion, but With COPD exacerbation with some degree of improvement with steroid and bronchodilators. Overall, clinically improved. No signs of acute infection at this time. Ambulatory oximetry study has been ordered for today. If he needs oxygen at the time of discharge then that can be arranged through DME. He is currently on Solu-Medrol 40 mg IV once a day. I will transition him to p.o. prednisone today which will be slowly taper by 10 mg every 4th day. Continue breathing treatments. I will switch his DuoNebs to standing as well as on p.r.n. basis. Wean O2 as tolerated. Keep oxygenation above 89%. Monitor He will likely need outpatient follow-up with pulmonology after discharge. He should be discharged on Symbicort and Spiriva in addition to albuterol inhaler and nebulization he currently have. He is currently not on any maintenance inhaler. He will need to have a PFT as an outpatient as well. (2) Lung cancer: Code(s): C34.90 - Malignant neoplasm of unspecified part of unspecified bronchus or lung Status: Acute Assessment and Plan: Pathology shows non-small cell carcinoma with mediastinal lymphadenopathy. Hematology consulted and appreciate rec; appt on 11/[address] Stoddard in office but he will not make it as he will likely get discharge tomorrow. I encouraged him to reschedule his appointment. Pt will need PET scan And MRI of the brain for staging (3) Parkinsons disease: Code(s): G20 - Parkinson's disease Status: Acute Assessment and Plan: Chronic Continue Sinemet (4) Essential (primary) hypertension: Code(s): I10 - Essential (primary) hypertension Status: Acute Assessment and Plan: blood pressure reviewed today. Continue Norvasc and lisinopril (5) Chronic obstructive pulmonary disease, unspecified: Code(s): J44.9 - Chronic obstructive pulmonary disease, unspecified Status: Acute Assessment and Plan: Acute COPD exacerbation; clinically improving. Continue to wean steroids as above Continue with nebulizer treatments; pt requested refill for home neb tx at discharge he should be discharged on Symbicort and Spiriva as he does not seem to be on any maintenance inhaler at this time. Seems to be having significant COPD on clinical grounds. He will need to follow-up with a advertising teacher as an outpatient and would need to have a PFT as well. Monitor (6) Depression with anxiety: Code(s): F41.8 - Other specified anxiety disorders Status: Chronic Assessment and Plan: Stable Continue with sertraline (7) Hypercalcemia: Code(s): E83.52 - Hypercalcemia Status: Acute Assessment and Plan: Calcium 12.0; likely related to Ca. Vit D borderline; PTH lower limits of normal Monitor Additional Plan #Hyponatremia - 136, likely due to cancer, monitor #chronic anemia - pt reports dark stools, but no obvious melena sx; no BRBPR. Gastroenterology service will be consulted but if he is not seen by tomorrow by GI then he can be discharged and can follow up with GI as an outpatient. His H&H is seems to be stable And does not have any indication of ongoing bleeding. Pt has colonoscopy scheduled in Jan at [place], but advised to try to move up appt or get in to see GI soon
[2020-11-08 08:22] LABS: Glucose Point of Care 95 mg/dl (65-105)
[2020-11-08] MEDS: MELOXICAM 7.5 MG TABLET 15 MG PO (09:34)
[2020-11-08] MEDS: FERROUS SULFATE 324 MG TABLET PO ×2 (09:34→16:53)
[2020-11-08] MEDS: amLODIPine BESYLATE 5 MG TABLET PO (09:35)
[2020-11-08] MEDS: predniSONE 20 MG TABLET 40 MG PO (09:35)
[2020-11-08] MEDS: CHOLECALCIFEROL 1,000 UNITS TABLET 1000 UNITS PO (09:36)
[2020-11-08] MEDS: lisinopriL 5 MG TABLET PO (09:36)
[2020-11-08] MEDS: ENOXAPARIN 40 MG/0.4 ML SYRINGE SUB-Q (09:36)
[2020-11-08] MEDS: PANTOPRAZOLE 40 MG TABLET PO (09:36)
[2020-11-08] MEDS: CARBIDOPA/LEVODOPA 25/100 MG TABLET 2 TABLET BY MOUTH ×3 (09:36→16:53)
[2020-11-08] MEDS: polyethylene glycoL 3350 17 GM POWD.PACK PO (09:36)
[2020-11-08 12:21] LABS: Glucose Point of Care 109 mg/dl (65-105)
[2020-11-08] MEDS: SERTRALINE HCL 50 MG TABLET 100 MG PO (20:20)
[2020-11-08 20:43] LABS: Glucose Point of Care 147 mg/dl (65-105)
[2020-11-09] VITALS (11 sets, daily range): BP systolic 123; BP diastolic 51; PULSE 75–92; RESP 16–20; TEMP 36.1; O2SAT 91–96
[2020-11-09] MEDS: IPRATROPIUM BR 0.02% INH SOLN 0.5 MG/2.5 ML VIAL INHALATION ×3 (01:36→15:19)
[2020-11-09] MEDS: ALBUTEROL SULFATE NEB 2.5 MG/0.5 ML INH 5 MG INHALATION ×3 (01:36→15:19)
[2020-11-09 03:49] LABS: Glucose Point of Care 144 mg/dl (65-105)
[2020-11-09 05:48] LABS: Basophils Percent Auto 0.1 % (0.2-1.2); Hematocrit 32.4 % (42.0-52.0); Hemoglobin 9.5 g/dL (14.0-18.0); Immature Granulocyte Absolute 0.06 K/mm3 (0.00-0.031); Immature Granulocyte Percent A 0.4 % (0-0.5); Lymphocytes Absolute Auto 1.43 K/mm3 (0.9-3.2); Lymphocytes Percent Auto 10.7 % (18.3-44.2); Mean Corpuscular HGB Conc 29.3 g/dl (32-36); Mean Corpuscular Hemoglobin 21.2 pg (26-34); Mean Corpuscular Volume 72.3 fl (80-100); Mean Platelet Volume 8.6 fl (7.4-10.4); Monocytes Percent Auto 7.7 % (2.6-8.5); Neutrophils Absolute Auto 10.9 K/mm3 (1.3-6.7); Neutrophils Percent Auto 81.1 % (45.5-73.1); Platelet Count Result 495 k/mm3 (150-375); Red Blood Count 4.48 M/mm3 (4.6-6.20); Red Cell Distribution Width 17.2 % (11.5-14.5); White Blood Count 13.4 K/mm3 (4.5-10.0)
[2020-11-09 06:03] LABS: Anion Gap 6 mmol/L (8-16); Blood Urea Nitrogen 21 mg/dL (9-20); Calcium 11.3 mg/dL (8.4-10.2); Carbon Dioxide 36 mmol/L (22-30); Chloride 92 mmol/L (98-107); Estimated CRCL calculation 62 ml/min; Estimated Glomerular Filt Rate > 60; Glucose 98 mg/dL (65-110); Potassium 3.4 mmol/L (3.4-5.0); Sodium 134 mmol/L (137-145)
[2020-11-09] MEDS: FERROUS SULFATE 324 MG TABLET PO (08:53)
[2020-11-09] MEDS: MELOXICAM 7.5 MG TABLET 15 MG PO (08:53)
[2020-11-09] MEDS: PANTOPRAZOLE 40 MG TABLET PO (08:54)
[2020-11-09] MEDS: CARBIDOPA/LEVODOPA 25/100 MG TABLET 2 TABLET BY MOUTH ×2 (08:54→12:32)
[2020-11-09] MEDS: lisinopriL 5 MG TABLET PO (08:54)
[2020-11-09] MEDS: CHOLECALCIFEROL 1,000 UNITS TABLET 1000 UNITS PO (08:54)
[2020-11-09] MEDS: predniSONE 20 MG TABLET 40 MG PO (08:54)
[2020-11-09] MEDS: amLODIPine BESYLATE 5 MG TABLET PO (08:54)
[2020-11-09] MEDS: ENOXAPARIN 40 MG/0.4 ML SYRINGE SUB-Q (08:55)
[2020-11-09] MEDS: polyethylene glycoL 3350 17 GM POWD.PACK PO (08:55)
[2020-11-09 09:27] LABS: Glucose Point of Care 97 mg/dl (65-105)
--- NOTE | 2020-11-09 12:06 | PM.DS ---
DS: Admitting Diagnosis Admitting Diagnosis Admitting Diagnosis: lung cancer DS: Discharge Diagnosis Discharge Diagnosis (1) Acute respiratory failure with hypoxia: Code(s): J96.01 - Acute respiratory failure with hypoxia Status: Acute Assessment and Plan: patient had home oxygen evaluation prior to discharge which revealed that he did require oxygen at rest and with activity - respiratory failure likely related to large mass in left lung ( fbn-egiqj-phbt cancer) with associated pleural effusion and COPD - he was given 1 dose of Lasix prior to discharge. He was started on Symbicort, Spiriva, and albuterol as well as a steroid taper. - patient stated that he felt better than he had in a long time the day of discharge but not back to baseline. I suspect this may be his new baseline - because of his extensive cancer and COPD component, I have recommended that he follow-up with a carrier associate - patient improved on nebulized treatment and steroids as well as oxygen therapy. No pneumonia suspected at this time. patient is to contact healthcare provider if he starts to have fevers (2) Lung cancer: Code(s): C34.90 - Malignant neoplasm of unspecified part of unspecified bronchus or lung Status: Acute Assessment and Plan: Pathology shows non-small cell carcinoma with mediastinal lymphadenopathy. - he follows Dr. Stoddard and is going to follow-up with him next week. The plan is to obtain an MRI, PET scan, and start treatment for his newly diagnosed cancer (3) Parkinsons disease: Code(s): G20 - Parkinson's disease Status: Acute Assessment and Plan: Chronic -Continue Sinemet (4) Essential (primary) hypertension: Code(s): I10 - Essential (primary) hypertension Status: Acute Assessment and Plan: last blood pressure 123/51 -Continue Norvasc and lisinopril (5) Chronic obstructive pulmonary disease, unspecified: Code(s): J44.9 - Chronic obstructive pulmonary disease, unspecified Status: Acute Assessment and Plan: Unclear if pt has been diagnosed with COPD in the past. It was suspected that he had an acute COPD exacerbation by ER and was clinically improving with steroids. -wean steroids outpt and pt started on symbicort and Spiriva at recommendation of Dr. Zafar that I agree with. I would recommend he follow up with pulmonology for PFTs for official diagnosis. (6) Depression with anxiety: Code(s): F41.8 - Other specified anxiety disorders Status: Chronic Assessment and Plan: Stable Continue with sertraline (7) Hypercalcemia: Code(s): E83.52 - Hypercalcemia Status: Acute Assessment and Plan: Calcium 11.3; likely related to Ca. Vit D borderline (replaced); PTH lower limits of normal Monitor DS: Summary Hospital Course Hospital Course: Pt is a 70 y/o male who was recently diagnosed with non-small cell lung carcinoma who presented to the ER 11/05/20 for progressive SOB. Initial cbc 11.5, hgb 9.1, hct 31, platelets 486. CXR showing mass in left lung upper lobe with stable small left pleural effusion with improved airspace opacities at the left lung base. CTA was done which showed: 1. No pulmonary embolus. Sensitivity is moderately decreased by motion artifact. 2. 12.0 cm mass in left lung upper lobe with invasion of the pericardium, consistent with non-small cell lung cancer. 3. Mild mediastinal lymphadenopathy, consistent with metastatic disease. 4. 5 mm right upper lobe pulmonary nodule, which is indeterminate for metastatic disease. 5. Small left pleural effusion. although there was motion artifact, I do not suspect PE since he improved with the additional treatment. Pt was started on steroids, nebulized treatments and o2 and was admitted to the hospital service. Pt improved on this therapy and was feeling much better day of d/c. No infx suspected at this time. No sign
[2020-11-09] MEDS: FUROSEMIDE INJ 40 MG/4 ML VIAL 20 MG IV PUSH (12:32)
[2020-11-09 12:41] LABS: Glucose Point of Care 166 mg/dl (65-105)
--- NOTE | 2020-11-09 12:55 | WPDGICN ---
Assessment and Plan Assessment and plan (1) Microcytic anemia: Code(s): D50.9 - Iron deficiency anemia, unspecified Status: Acute Assessment and Plan: Patient with microcytic anemia. Hemoglobin stable with no signs of acute blood loss. Plan is to check iron studies. Stool Hemoccult. Elective GI endoscopy to evaluate for GI source of anemia appears reasonable. However this should be deferred to his respiratory status is more stable. Stool guaiac and iron studies will be obtained. Elective outpatient GI endoscopy when respiratory status is more stable is advised. (2) Lung cancer: Code(s): C34.90 - Malignant neoplasm of unspecified part of unspecified bronchus or lung Status: Acute (3) Acute respiratory failure with hypoxia: Code(s): J96.01 - Acute respiratory failure with hypoxia Status: Acute (4) Parkinsons disease: Code(s): G20 - Parkinson's disease Status: Acute GI Consult Note Consult date/time: 11/09/20 12:55 HPI: Frederick Babb is a 70 year old male I am asked to see because of anemia. Patient admitted the hospital with shortness of breath. He was recently identified as having a malignancy in the lung. Patient denies any obvious GI bleeding. He denies any abdominal pain. He has had no blood in his stools. Patient does have a past medical history of COPD. Patient reports having previous colon polyps. Typically followed at the [facility]. He was anticipated to have a colonoscopy in January for follow-up because of prior history of colon polyps. Colonoscopy has been requested. However patient remains somewhat short of breath even at rest. Review of Systems Review of Systems: All systems reviewed & are unremarkable except as noted in HPI and below [facility] Past Medical History Medical History (Updated 11/06/20 @ 15:36 by Amrit Stoddard MD) Agent orange exposure Anemia, unspecified Body mass index (BMI) 35.0-35.9, adult (01/01/19) Changing skin lesion Chronic obstructive pulmonary disease, unspecified Depression with anxiety Dorsalgia, unspecified Essential (primary) hypertension Former smoker Hyperglycemia Hypersomnia Memory loss Other fatigue Parkinsons disease Pure hypercholesterolemia Tremor Urinary incontinence Family History Family History Mother Patient's mother is in good health Patient's mother is , Onset Age: 69 Family history of malignant neoplasm of brain Family history of malignant neoplasm of bone Family history of malignant neoplasm of uterus Social History Social History (Updated 11/05/20 @ 23:53 by Alicia Pearson NP) Social History: The patient lives with his partner Manny jackson who is his durable power immigration attorney for healthcare. The patient desires to be a DNR. The patient retired from [employer]. The patient used to smoke many years ago. He denies any marijuana or illicit drugs. No alcohol. Smoking packs per day: 3.5 Smoking cigarettes per day: 70.0 Years smoked: 11 Smoking pack-years: 38.50 Smoking status: Former smoker Tobacco type: cigarettes Second hand tobacco smoke exposure: Yes Smoking end date: 04/24/00 Alcohol intake: never Substance use: never Substance use type: does not use Gender identity (if verbalized by the patient): Male Sexual Orientation (if Verbalized by the Patient): Lesbian, Zaragoza, or Homosexual Spiritual care concerns: No Meds Home Medications and Allergies Home Medications Medication Instructions Recorded Confirmed Type amlodipine 5 mg tablet 5 mg PO DAILY 06/14/19 11/05/20 History ipratropium 20 mcg-albuterol 100 1 puff INHALATION QID 06/14/19 11/05/20 History mcg/actuation mist for inhalation lisinopril 5 mg tablet 5 mg PO DAILY 06/14/19 11/05/20 History polyethylene glycol 3350 17 17 gm PO DAILY 06/14/19 11/05/20 History gram/dose oral powder Guaifenesi
--- NOTE | 2020-11-09 13:33 | PCRCNOTE ---
HOME O2 SET [facility] ARE TO DELIVER A TANK TO PT'S ROOM TODAY FOR DISCHARGE. PHONE NUMBER [phone]
[2020-11-09 13:56] LABS: Iron 23 ug/dL (49-181)
[2020-11-09 14:06] LABS: Percent Iron Saturation 11 % (20-50)
== END 2020-11-09 15:57 | disposition home or self-care (01) | DRG 189 ==
LOC: ANHED 18:13 → ANH2MED 11-06 08:13
PROVIDERS: Emergency Medicine; Internal Medicine Gastroenterology; Physician Assistant; Admitting Provider Internal Medicine; Emergency Provider Emergency Medicine; Visit Provider Internal Medicine Critical Care Medicine
DX: J96.01 Acute respiratory failure with hypoxia (principal); C34.92 Malignant neoplasm of unspecified part of left bronchus or lung; J44.1 Chronic obstructive pulmonary disease with (acute) exacerbation; E87.1 Hypo-osmolality and hyponatremia; J90 Pleural effusion, not elsewhere classified; R91.1 Solitary pulmonary nodule; G20 Parkinson's disease; I10 Essential (primary) hypertension; F41.8 Other specified anxiety disorders; E83.52 Hypercalcemia; D50.9 Iron deficiency anemia, unspecified; Z77.29 Contact with and (suspected) exposure to other hazardous substances; Z66 Do not resuscitate; Z87.891 Personal history of nicotine dependence
CPT/HCPCS: 36415; 36600; 71045; 71046; 71275; 80048; 80053; 82306; 82728; 82805; 82948; 83540; 83550; 83605; 83735; 83970; 84484; 85025; 85027; 85610; 85730; 87040; 93005; 94618; 94640; 96374; 99285; A9270; J1650; J1815; J1940; J2920; J2930; J7512; Q9967

== ENCOUNTER 2020-11-19 10:22 | Outpatient (CLI) | payer OTHER, SELFPAY ==
--- NOTE | ~2020-11-19 | PE_ITS ---
EXAMINATION: PET skull to mid thigh DATE: 11/19/2020 14:12 INDICATION: Malignant neoplasm of the lung TECHNIQUE: Blood glucose level was 105 mg/dL. And 0.346 mCi of 18-fluorodeoxyglucose (18-FDG) was adm inistered i.v. Low dose computed tomography (CT) images were acquired from the base of the brain to t he proximal thighs for attenuation correction and anatomic localization. Positron emission tomography (PET) images were acquired in the same distribution beginning 66 minutes after injection. Images inc luding fused PET/CT images were reconstructed in axial, coronal, and sagittal planes. Automated expos ure control technique was employed. The dose-length product was 555.73mGy-cm. COMPARISON: Chest CT dated 11/05/2020 FINDINGS: Head/neck: There is symmetric increased activity in the oral cavity, parotid glands and palatine tonsils without CT correlate, likely physiologic. No pathologically enlarged cervical lymphadenopathy or suspicious foci of increased FDG uptake in the visualized head or neck. Atherosclerotic calcifications at the bi lateral carotid bulbs. Chest: There is intense FDG uptake at the periphery of a likely centrally necrotic biopsy-proven lung cancer in the left upper lobe and lingula which measures approximately 14 x 10 cm. The maximal SUV is 16.4. The mass appears to invade the pericardium overlying the left ventricle with effacement of the under lying pericardial fat. Small posteriorly layering left pleural effusion with partial collapse of the basilar left lower lobe. Right lung is clear. Heart size is normal. Atherosclerotic coronary artery c alcifications. Thoracic aorta is normal in caliber. Again seen are several mildly enlarged prevascula r and AP window lymph nodes which demonstrate only mild FDG uptake with the most FDG avid prevascular lymph node demonstrating an SUV of 3.1. Given the intense uptake of the primary mass this remains eq uivocal for reactive versus metastatic lymph node. Abdomen/pelvis/proximal thighs: Physiologic renal accumulation and excretion of FDG activity in the kidneys, bladder and along portio ns of ureters. Normal degree and heterogenous pattern of increased uptake throughout the liver withou t radiologic correlate or dominant FDG avid lesion. The gallbladder, pancreas, spleen and bilateral a drenal glands are normal. Mild uptake scattered throughout the bowels without radiologic correlate, a lso likely physiologic. Prostatomegaly. No other abnormal foci of increased FDG uptake or pathologica lly enlarged lymphadenopathy in the abdomen, pelvis or proximal thighs. Musculoskeletal: Likely extravasated activity at the site of injection at the right antecubital fossa. No suspicious l ytic, blastic or FDG avid bone lesions. Severe cervical spondylosis. IMPRESSION: 1. Intense FDG uptake with maximal SUV of 16.4 cm at the periphery of a 14 x 10 cm likely centrally n ecrotic mass in the left upper lobe and lingula which invades the pericardium. 2. Mild mediastinal lymphadenopathy with only mild FDG activity, the highest maximal SUV of 3.1 at a prevascular lymph node and this remains equivocal for either reactive lymphadenopathy versus metastat ic disease. 3. No other lesions suspicious for metastatic disease in the neck, chest, abdomen or pelvis or in the bones. Reviewed, dictated and finalized at location A. IMPRESSION: 1. Intense FDG uptake with maximal SUV of 16.4 cm at the periphery of a 14 x 10 cm likely centrally necrotic mass in the left upper lobe and lingula which inv ades the pericardium. 2. Mild mediastinal lymphadenopathy with only mild FDG activity, the highest ma ximal SUV of 3.1 at a prevascular lymph node and this remains equivocal for eit her reactive lymphadenopathy versus metastatic dis
--- NOTE | ~2020-11-19 | MR_ITS ---
EXAMINATION: MR brain/brain stem wo/w con EXAM DATE: 11/19/2020 12:04 INDICATION: malignant neoplasm of lung . TECHNIQUE: Magnetic resonance imaging (MRI) of the brain/brain stem obtained without contrast. Sagit rina T1, axial diffusion, gradient echo (T2*), T1, T2, FLAIR sequences obtained. Patient was then inj ected with 12 cc intravenous Multihance contrast. Axial and coronal postcontrast T1 weighted sequence s obtained. There is no prior study for comparison. FINDINGS: Small to moderate amount of fluid within both maxillary sinuses and mild to moderate right maxillary and bilateral ethmoid mucoperiosteal thickening. There are no areas of restricted diffusion to suggest acute infarction. There is no acute hemorrhage seen on the T2*, a hemosiderin sensitive sequence. No intraparenchymal brain mass. The ventricles are normal in size. There are no extra-axi al collections. Flow voids are seen in the cerebral arteries on the T2-weighted sequences consistent with their expected patency. The orbits are unremarkable. Soft tissue is unremarkable. There are no areas of abnormal enhancement on the postcontrast images. IMPRESSION: 1. No evidence of intracranial metastatic disease. 2. Maxillary sinus fluid and mucoperiosteal disease. Could be reactive but sinusitis not excludable. Reviewed, dictated and finalized at location B. IMPRESSION: 1. No evidence of intracranial metastatic disease. 2. Maxillary sinus fluid and mucoperiosteal disease. Could be reactive but sin usitis not excludable.
[2020-11-19 11:15] LABS: Glucose Point of Care 105 mg/dl (65-105)
== END 2020-11-19 10:23 | disposition home or self-care (01) ==
PROVIDERS: Visit Provider Internal Medicine Hematology & Oncology
DX: C34.90 Malignant neoplasm of unspecified part of unspecified bronchus or lung (principal); J32.0 Chronic maxillary sinusitis
CPT/HCPCS: 70553; 78815; A9552; A9577